=== PATIENT | female | born 1955 | race Caucasian/White ===

== ENCOUNTER → 2017-11-24 | Outpatient (CLI) | payer MEDICAID ==
[~2017-11-24] MED LIST: ABILIF5PT PO; ACE325 PO; ACE500 PO; ACY15T TOP; ADV250/50 INH; ADVAIR; ADVAIR IH; ALAVERT IH; ALB0.5 INH; ALB17R INH; ALB6.7R INH; ALBUTERAL INHALER IH; ALE70 PO; AMOX-559 PO; ANU28T RC; ARIP1SOL2 PO; ARIP2TAB9 PO; ATOR20TA65 PO; AUG875 PO; AVANZA; AVINZA; AVINZA PO; AZIT-17 PO; BACI28.415 TP; BACL-51 PO; BACOUD TOP; BEN100 PO; BENZ1 PO; BETA1TAB44 PO; BIS5 PO; BUPR-156 PO; CALC-1033 PO; CALC-41 PO; CALC-852 PO; CALC625T57 PO; CALCIUM; CARB15DR72 OP; CEFT1VIA52 IV; CEFT2FRO4 IV; CEP500 PO; CEPH-13 PO; CEPH-312 PO; CEPH500C24 PO; CET10 PO; CHLO5CAP PO; CHOL200022 PO; CHOL200038 PO; CHOL400T31 PO; COL30T TP; CYC10 PO; CYCL-332 PO; CYCL10TA PO; DES5 PO; DEXT10TA9 PO; DICL1ADH TP; DOC100 PO; DOCU-416 PO; DOCU100T19 PO; DOCU50CA PO; DOXY-179 PO; DOXY-260 PO; ERGO500029 PO; ERT1P IV; ESTR0.5T16 PO; ESTR0.5T18 PO; ESTR0.9T14 PO; ESTRADIOL; ESTRADIOL PO; FIB PO; FIBERCON; FLUT10SP NS; FLUT16SP19 NS; FLUT16SP20 NS; FOL1 PO; FURO-45 PO; HYD2 PO; HYDR-385 PO; HYDR25SU51 RC; HYDR57CR TP; LEV175 PO; LEV500 PO; LEVO-3 PO; LEVO150T78 PO; LEVO175T37 PO; LID5T TOP; LIDO700A25 TP; LOR10 PO; LOR5 PO; LOR5/325 PO; LORA-798 PO; LORA10TA2 PO; MAGN250T34 PO; MAGN27TA6 PO; MAGN500C10 PO; MELO-150 PO; MELO-207 PO; MET10 PO; MICO113C TP; MIR; MIR PO; MIRA50TA PO; MOD100 PO; MODA200T39 PO; MODA200T55 PO; MOMR; MOMR ENA; MORIR15 PO; MORP-183 PO; MORP30CA15 PO; MORPHINE PO; MULT1CAP41 PO; MULTI VITAMIN; NAP375 PO; OMEP-218 PO; OXY5 PO; OXYB15TA17 PO; OXYB5TAB86 PO; OXYGEN INH; PAR20 PO; PARO20TA4 PO; PARO30TA71 PO; PARO40TA86 PO; PAROXETINE PO; POLPT TOP; POLY17PO19 PO; POTA2TAB29; POTA99TA10; PRAV40TA77 PO; PRE20 PO; PRED20TA6 PO; QUET25TA30 PO; ROP1 PO; ROPI0.2527 PO; ROPI0.5T24 PO; ROPI1TAB35 PO; ROPI1TAB36 PO; ROPI2TAB28 PO; ROPI4TAB PO; ROPI4TAB2 PO; SEN PO; SIMV-49 PO; SOL5 PO; SOLI5TAB PO; STOOL SOFTNER; STOOL SOFTNER PO; TOP100 PO; TOPI200T61 PO; TRA50 PO; TRAM-420 PO; TRAZ-133 PO; TRAZ-156 PO; TRAZ150T61 PO; TRAZ50 PO; TRI05T TP; TRIC15T TOP; VANC1VIA12 IV; VANC1VIA14 IVPB; VIT-7 PO; VITAMIN D; [UNRECOGNIZED DRUG - CODE] ASDIRECTED; [UNRECOGNIZED DRUG - CODE] MC; [UNRECOGNIZED DRUG - CODE] PO; [UNRECOGNIZED DRUG - CODE] PO; [UNRECOGNIZED DRUG - CODE] PO; [UNRECOGNIZED DRUG - CODE] PO; [UNRECOGNIZED DRUG - CODE] PO; [UNRECOGNIZED DRUG - CODE] PO; [UNRECOGNIZED DRUG - CODE] PO; [UNRECOGNIZED DRUG - CODE] PO; [UNRECOGNIZED DRUG - OTHER] ASDIRECTED; [UNRECOGNIZED DRUG - OTHER] PO; multivit
--- NOTE | 2017-11-24 15:20 | RADIOLOGY IMAGING REPORT ---
FACILITY: [facility] PATIENT NAME: Bhavya Dorantes : 1955 MR: [id number] V: [id number] EXAM DATE: ORDERING PHYSICIAN: SHIMA VILLARREAL TECHNOLOGIST: Location: [facility] Patient: Bhavya Dorantes : 1955 Visit/Account:[id number] Date of Sevice: 11/24/2017 Exam type: VENOUS DOPP UPPER LEFT EXTREMI History: Swelling left medial elbow pain when blood pressure taken Comparison: None. Findings: The left upper extremity veins were imaged including the left internal jugular vein the left innomina te vein left subclavian vein left axillary vein left brachial vein left basilic vein left radial vein and ulnar veins and cephalic veins revealing no evidence intraluminal thrombi. The veins demonstrat ed phasic flow. The veins from the left subclavian distally were compressed. IMPRESSION: 1. No sonographic evidence DVT involving the left upper extremity veins Report Dictated By: Edna Espinoza MD at 11/24/2017 3:13 PM Report E-Signed By: Edna Espinoza MD at 11/24/2017 3:15 PM WSN:[email or web address]
== END ==
LOC: US 14:13
PROVIDERS: ATTEND Family Medicine
DX: M79.602 Pain in left arm (principal)

== ENCOUNTER 2018-01-10 08:14 | Emergency (ER) | payer MEDICAID ==
[~2018-01-10] VITALS: Ht 160 cm; Wt 125.6 kg
--- NOTE | 2018-01-10 08:24 | ER Report ---
History and Physical Time Seen By MD: 08:24 Hx. of Stated Complaint: PT REPORTS EAR AND SINUS PAIN FOR 1 WEEK HPI/ROS CHIEF COMPLAINT: sinus problems and ear pain HISTORY OF PRESENT ILLNESS: This is a 62 year old female. She is concerned about her sinuses. She has had pain for about a week. Worse on the right side with pain in the maxillary area and frontal. Right ear hurts and she says she has a lump behind the ear. She has COPD and asthma and has had increased wheezing and shortness of breath. She takes a chronic nasal steroid, but no oral steroids. She has had increased cough as well. No fevers/chills. Having post nasal drainage. No chest pain. No nausea or vomiting. No musculoskeletal pain. REVIEW OF SYSTEMS: As above. Allergies: Coded Allergies: oxycodone (Verified Allergy, Severe, RASH, 01/10/18) Sulfa (Sulfonamide Antibiotics) (Verified Allergy, Intermediate, ITCH, ) ciprofloxacin (Verified Allergy, Mild, HIVES, 01/10/18) Uncoded Allergies: SOME TAPES (Allergy, Mild, 07/21/11) PLASTIC ON HOSPITAL BEDS (Allergy, Unknown, 07/21/11) Home Meds Active Scripts Methylprednisolone (METHYLPREDNISOLONE) 4 Mg Tab.ds.pk, 4 MG PO DIRECTED, #1 PACK 0 Refills Prov:SAUL NAJERA MD 01/10/18 Amoxicillin/Pot Clav 875-125 Mg Tab (AUGMENTIN 875-125 TABLET) 1 Each Tablet, 1 TAB PO Q12H, #20 TAB 0 Refills Prov:SAUL NAJERA MD 01/10/18 Cephalexin Monohydrate (CEPHALEXIN) 500 Mg Cap, 2 TAB PO BID, #120 CAP 0 Refills Prov:JALEN LIZARRAGA MD 04/14/16 Tramadol Hcl (TRAMADOL HCL) 50 Mg Tablet, 1-2 TAB PO Q4-6H Y for PAIN, #30 TAB 0 Refills Prov:JALEN LIZARRAGA MD 01/02/16 Docusate Sodium (COLACE) 100 Mg Capsule, 1 CAP PO BID, #30 CAPSULE 0 Refills Prov:JALEN LIZARRAGA MD 01/02/16 Hydrocodone Bit/Acetaminophen (HYDROCODON-ACETAMINOPHEN 5-325) 1 Each Tablet, 1- 2 TAB PO Q4H Y for PAIN, #30 TAB 0 Refills Prov:JALEN LIZARRAGA MD 12/25/15 Bacitracin (BACITRACIN) 30 Gm Oint...g., 1 HIMA TP QDAY Y for Dressing Changes, # 1 TUBE 0 Refills Prov:JALEN LIZARRAGA MD 07/28/15 Aripiprazole (ABILIFY) 5 Mg Tablet, 0.5 TAB PO QDAY, #15 TAB TAKE 1 TABLET BY MOUTH EVERY DAY Prov:PAULO DURANT APRN-C 06/27/15 Atorvastatin Calcium (ATORVASTATIN CALCIUM) 20 Mg Tablet, 1 TAB PO QDAY, #90 TAB 1 Refill Prov:MAHSA MCCARTNEY MD 05/06/15 Baclofen (BACLOFEN) 20 Mg Tablet, 1 TAB PO TID, #270 TAB 3 Refills TAKE 1 TABLET BY MOUTH THREE TIMES A DAY Prov:MAHSA MCCARTNEY MD 05/02/15 Morphine Sulfate (MS CONTIN) 30 Mg Tablet.er, 1 TAB PO BID, #60 TAB 0 Refills Prov:MAHSA MCCARTNEY MD 05/02/15 Paroxetine Hcl (PAROXETINE HCL) 30 Mg Tablet, 1 TAB PO QDAY for for depression, #90 TAB 3 Refills Prov:MAHSA MCCARTNEY MD 05/02/15 Meloxicam (MELOXICAM) 15 Mg Tablet, 1 TAB PO QDAY, #90 TAB 3 Refills Prov:MAHSA MCCARTNEY MD 05/02/15 Trazodone Hcl (TRAZODONE HCL) 50 Mg Tablet, 1 TAB PO QHS, #90 TAB 3 Refills Prov:MAHSA MCCARTNEY MD 05/02/15 Polyhexam Biguan/Gauze Bandage (Curity Amd 2"X2" Non-Woven) 1 Each Sponge, PACK ASDIRECTED DIRECTED Y for Post-op Dressing, #1 3 Refills Prov:JALEN LIZARRAGA MD 03/31/15 0.9 % Sodium Chloride (SALINE WOUND WASH) 210 Ml Solution, 1 BOTTLE ASDIRECTED DIRECTED Y for Post-Op Dressing, #1 3 Refills Prov:JALEN LIZARRAGA MD 03/31/15 Topiramate (TOPIRAMATE) 200 Mg Tablet, 1 TAB PO QDAY, #30 TAB 5 Refills Prov:PAULO DURANT APRN-C 03/13/15 Modafinil (PROVIGIL) 200 Mg Tablet, 1 TAB PO QAM, #30 TAB 5 Refills Prov:MAHSA MCCARTNEY MD 01/30/15 Reported Medications Solifenacin Succinate (VESICARE) Unknown Strength Tablet, PO 08/25/15 Mirabegron (MYRBETRIQ) 50 Mg Tab.er.24h, 50 MG PO QDAY 08/25/15 Levothyroxine Sodium (LEVOTHYROXINE SODIUM) 100 Mcg Tablet, 100 MCG PO QDAY 07/28/15 Ropinirole Hcl (ROPINIROLE HCL) 2 Mg Tablet, 1-2 TAB PO QDAY, #90 TAB 3 Refills 06/10/15 Cholecalciferol (Vitamin D3) (VITAMIN D) 2,000 Unit Tablet, 1 TAB PO QDAY, CAPSULE 06/10/15 Calcium Carbonate/Vitamin D3 (Calcium 600 + D Tablet) 1 Each Tablet, 2 TAB PO QDAY 06/10/15 Collagenase Clostridium Hist. (SANTYL) Unknown Strength Oint...g., TP 11/25/14 Vit A,C & E/Lutein/Minerals (OCUVITE TABLET) 1 Each Tablet, 1 EACH PO DAILY 11/25/14 Triamcinolone Acet 0.5% (TRIAMCINOLONE ACETONIDE 0.5%) 15 Gm Cr, 15 GM TP BID 08/02/14 Past Medical/Surgical History Multiple sclerosis, hyperlipidemia, hypertension, asthma, COPD, osteoarthritis, hypothyroidism, depression. Surgeries include hernia repair, hysterectomy, multiple orthopedic surgeries including back and neck, genitourinary surgery Reviewed Nurses Notes: Yes Hx Smoking: No (JANUARY 26, 2005 SHE QUIT (SMOKED 2 PPD X 30 + YRS)) Smoking Status: Former Smoker Hx Substance Use Disorder: No Hx Alcohol Use: No Constitutional Vital Sign - Last 24 Hours 01/10/18 01/10/18 01/10/18 01/10/18 08:17 08:20 08:24 08:30 Temp 98.2 Pulse 78 72 Resp 18 B/P (MAP) 115/74 (88) 115/74 125/118 (120) Pulse Ox 90 91 O2 Delivery Nasal Cannula 01/10/18 01/10/18 01/10/18 01/10/18 08:34 08:40 08:40 08:46 Pulse 73 70 68 Resp 18 18 Pulse Ox 91 92 O2 Delivery Nasal Cannula O2 Flow Rate 2.0 01/10/18 01/10/18 01/10/18 01/10/18 08:54 09:29 09:59 10:29 Pulse 77 74 71 Pulse Ox 87 89 89 88 01/10/18 01/10/18 10:57 11:01 Pulse 69 B/P (MAP) 99/81 (87) 99/81 (87) Pulse Ox 90 O2 Delivery Nasal Cannula O2 Flow Rate 2 Physical Exam General Appearance: The patient is alert. No acute distress. Eyes: Pupils are equal, round. No pallor, injection or icterus. ENT: Mucous membranes are moist. Normal oral mucosa. Posterior oropharynx shows thick post-nasal drainage and erythema. Nasal mucosa is very erythematous in the right nasal passage, mild erythema in left, significant mucous both sides. Ear canal red and swollen on the right. Bulging and effusion on right but TM normal color. TM and canal on left is normal with effusion. Neck: Supple and non tender. Tender posterior cervical lymphadenopathy on right side. Respiratory: Lungs with significant wheezing, but no rales or rhonchi. There are no retractions or accessory muscle use. Cardiovascular: Regular rate and rhythm. No murmurs, gallops or rubs. Normal capillary refill. Neurological: Alert and oriented x3. Skin: Warm and dry. No rashes. DIFFERENTIAL DIAGNOSIS: After history and physical exam, differential diagnosis was considered for a patient with otitis externa of the right ear, concern for sinusitis, and increased wheezing with history of asthma and COPD. Medical Decision Making Data Points Laboratory Hematology Test 01/10/18 08:45 Influenza Virus Type A (PCR) Negative (NEGATIVE) Influenza Virus Type B (PCR) Negative (NEGATIVE) Chemistry Test 01/10/18 08:45 Influenza Virus Type A (PCR) Negative (NEGATIVE) Influenza Virus Type B (PCR) Negative (NEGATIVE) EKG/Imaging Imaging Exam type: CHEST PA AND LAT History: Comparison: October 24, 2016. Findings: Mild chronic peribronchial thickening again noted bilaterally. There is no evidence of acute-appearing pulmonary consolidation pleural effusions or overt pulmonary edema. The cardiac silhouette is normal in size. There are postsurgical changes from fusion of the lower cervical spine. Moderate spondylotic changes the thoracic spine also noted IMPRESSION: 1. Chronic peribronchial thickening noted bilaterally similar to the prior study. No evidence of acute pulmonary consolidation seen Report Dictated By: Edna Espinoza MD at 01/10/2018 9:08 AM ED Course/Re-evaluation ED Course Physical exam shows otitis externa, she has symptoms and history consistent with sinusitis. Chest x-ray was obtained because of the increased wheezing, but no acute abnormalities were noted, so we will go ahead and treat for asthma exacerbation as well. See instructions below Decision to Disposition Date: Jan 10, 2018 Decision to Disposition Time: 10:51 Depart Departure Latest Vital Signs Vital Signs Date Time Temp Pulse Resp B/P (MAP) Pulse Ox O2 Delivery O2 Flow Rate FiO2 01/10/18 11:01 69 99/81 (87) 90 Nasal Cannula 2 01/10/18 08:46 18 01/10/18 08:20 98.2 Impression: Primary Impression: Otitis externa Additional Impressions: Sinusitis Asthma exacerbation Condition: Improved Disposition: HOME OR SELF-CARE Referrals: SHIMA VILLARREAL DO (PCP) New Scripts Methylprednisolone (METHYLPREDNISOLONE) 4 Mg Tab.ds.pk 4 MG PO DIRECTED, #1 PACK 0 Refills Prov: SAUL NAJERA MD 01/10/18 Amoxicillin/Pot Clav 875-125 Mg Tab (AUGMENTIN 875-125 TABLET) 1 Each Tablet 1 TAB PO Q12H, #20 TAB 0 Refills Prov: SAUL NAJERA MD 01/10/18 Patient Instructions: Asthma (ED), Otitis Externa (ED), Sinusitis (ED) Additional Instructions: Take Augmentin 875/125 twice a day for 10 days. Take a Medrol Dosepak over the next 6 days. Use your albuterol inhaler, 2 puffs every 4 hours as needed for wheezing or shortness of breath Problem Qualifiers Primary Impression: Otitis externa Otitis externa type: swimmer's ear Chronicity: acute Laterality: left Qualified Codes: H60.332 - Swimmer's ear, left ear Additional Impressions: Sinusitis Sinusitis location: pansinusitis Chronicity: acute Recurrence: not specified as recurrent Qualified Codes: J01.40 - Acute pansinusitis, unspecified Asthma exacerbation Asthma severity: moderate Asthma persistence: persistent Qualified Codes: J45.41 - Moderate persistent asthma with (acute) exacerbation SAUL NAJERA MD Jan 10, 2018 08:24
[2018-01-10] MEDS ORDERED: ALBUTEROL/IPRATROPIUM 3 ML NEB NEB ONE (08:35)
--- NOTE | 2018-01-10 09:15 | RADIOLOGY IMAGING REPORT ---
FACILITY: [facility] PATIENT NAME: Bahvya Dorantes : 1955 MR: [id number] V: [id number] EXAM DATE: ORDERING PHYSICIAN: SAUL NAJERA TECHNOLOGIST: Location: [facility] [place] Patient: Bhavya Dorantes : 1955 Visit/Account:[id number] Date of Sevice: 01/10/2018 Exam type: CHEST PA AND LAT History: Comparison: October 24, 2016. Findings: Mild chronic peribronchial thickening again noted bilaterally. There is no evidence of acute-appeari ng pulmonary consolidation pleural effusions or overt pulmonary edema. The cardiac silhouette is nor mal in size. There are postsurgical changes from fusion of the lower cervical spine. Moderate spond ylotic changes the thoracic spine also noted IMPRESSION: 1. Chronic peribronchial thickening noted bilaterally similar to the prior study. No evidence of ac roseann pulmonary consolidation seen Report Dictated By: Edna Espinoza MD at 01/10/2018 9:08 AM Report E-Signed By: Edna Espinoza MD at 01/10/2018 9:10 AM WSN:[email or web address]
[2018-01-10] MEDS ORDERED: METH4TAB66 PO (10:54)
[2018-01-10] MEDS ORDERED: AMOX-559 PO (10:54)
[2018-01-10 11:01] VITALS: BP 99/81
== END 2018-01-10 11:06 | disposition home or self-care (01) ==
LOC: ER 08:15
DX: H60.91 Unspecified otitis externa, right ear (principal); J01.40 Acute pansinusitis, unspecified; J45.41 Moderate persistent asthma with (acute) exacerbation; Z87.891 Personal history of nicotine dependence; J44.9 Chronic obstructive pulmonary disease, unspecified
CPT/HCPCS: 71046; 87502; 94640; 99283; J7620

== ENCOUNTER → 2018-06-29 | Emergency (ER) | payer MEDICAID ==
[~2018-06-29] MED LIST changes: +CEPH500T7 PO; +METH4TAB66 PO; -TRAZ-156 PO; +TRAZ50TA34 PO
--- NOTE | 2018-06-29 10:16 | ER Report ---
History and Physical Time Seen By MD: 10:16 HPI/ROS CHIEF COMPLAINT: Right dorsal foot redness HISTORY OF PRESENT ILLNESS: Patient is a 62-year-old female here with complaints of right dorsal foot redness which started yesterday after standing for approximately 10 minutes. Patient reports having prior surgery on the foot and recurrent bone infections in the past. Patient is concerned that she had a fractured the foot or has an infection starting. Patient is afebrile at time of evaluation, hemodynamically stable. Patient denies other injuries at this time. REVIEW OF SYSTEMS: Constitutional: No fever, no chills. Eyes: No discharge. ENT: No sore throat. Cardiovascular: No chest pain, no palpitations. Respiratory: No cough, no shortness of breath. Gastrointestinal: No abdominal pain, no vomiting. Genitourinary: No hematuria. Musculoskeletal: No back pain. Skin: + right dorsal foot erythema Neurological: No headache. Allergies: Coded Allergies: oxycodone (Verified Allergy, Severe, RASH, 06/29/18) Sulfa (Sulfonamide Antibiotics) (Verified Allergy, Intermediate, ITCH, ) ciprofloxacin (Verified Allergy, Mild, HIVES, 06/29/18) Uncoded Allergies: SOME TAPES (Allergy, Mild, 07/21/11) PLASTIC ON HOSPITAL BEDS (Allergy, Unknown, 07/21/11) Home Meds Active Scripts Methylprednisolone (METHYLPREDNISOLONE) 4 Mg Tab.ds.pk, 4 MG PO DIRECTED, #1 PACK 0 Refills Prov:SAUL NAJERA MD 01/10/18 Amoxicillin/Pot Clav 875-125 Mg Tab (AUGMENTIN 875-125 TABLET) 1 Each Tablet, 1 TAB PO Q12H, #20 TAB 0 Refills Prov:SAUL NAJERA MD 01/10/18 Cephalexin Monohydrate (CEPHALEXIN) 500 Mg Cap, 2 TAB PO BID, #120 CAP 0 Refills Prov:JALEN LIZARRAGA MD 04/14/16 Tramadol Hcl (TRAMADOL HCL) 50 Mg Tablet, 1-2 TAB PO Q4-6H Y for PAIN, #30 TAB 0 Refills Prov:JALEN LIZARRAGA MD 01/02/16 Docusate Sodium (COLACE) 100 Mg Capsule, 1 CAP PO BID, #30 CAPSULE 0 Refills Prov:JALEN LIZARRAGA MD 01/02/16 Hydrocodone Bit/Acetaminophen (HYDROCODON-ACETAMINOPHEN 5-325) 1 Each Tablet, 1- 2 TAB PO Q4H Y for PAIN, #30 TAB 0 Refills Prov:JALEN LIZARRAGA MD 12/25/15 Bacitracin (BACITRACIN) 30 Gm Oint...g., 1 HIMA TP QDAY Y for Dressing Changes, # 1 TUBE 0 Refills Prov:JALEN LIZARRAGA MD 07/28/15 Aripiprazole (ABILIFY) 5 Mg Tablet, 0.5 TAB PO QDAY, #15 TAB TAKE 1 TABLET BY MOUTH EVERY DAY Prov:PAULO DURANT APRN MELTER CASTER-C 06/27/15 Atorvastatin Calcium (ATORVASTATIN CALCIUM) 20 Mg Tablet, 1 TAB PO QDAY, #90 TAB 1 Refill Prov:MAHSA MCCARTNEY MD 05/06/15 Baclofen (BACLOFEN) 20 Mg Tablet, 1 TAB PO TID, #270 TAB 3 Refills TAKE 1 TABLET BY MOUTH THREE TIMES A DAY Prov:MAHSA MCCARTNEY MD 05/02/15 Morphine Sulfate (MS CONTIN) 30 Mg Tablet.er, 1 TAB PO BID, #60 TAB 0 Refills Prov:MAHSA MCCARTNEY MD 05/02/15 Paroxetine Hcl (PAROXETINE HCL) 30 Mg Tablet, 1 TAB PO QDAY for for depression, #90 TAB 3 Refills Prov:MAHSA MCCARTNEY MD 05/02/15 Meloxicam (MELOXICAM) 15 Mg Tablet, 1 TAB PO QDAY, #90 TAB 3 Refills Prov:MAHSA MCCARTNEY MD 05/02/15 Trazodone Hcl (TRAZODONE HCL) 50 Mg Tablet, 1 TAB PO QHS, #90 TAB 3 Refills Prov:MAHSA MCCARTNEY MD 05/02/15 Polyhexam Biguan/Gauze Bandage (Curity Amd 2"X2" Non-Woven) 1 Each Sponge, PACK ASDIRECTED DIRECTED Y for Post-op Dressing, #1 3 Refills Prov:JALEN LIZARRAGA MD 03/31/15 0.9 % Sodium Chloride (SALINE WOUND WASH) 210 Ml Solution, 1 BOTTLE ASDIRECTED DIRECTED Y for Post-Op Dressing, #1 3 Refills Prov:JALEN LIZARRAGA MD 03/31/15 Topiramate (TOPIRAMATE) 200 Mg Tablet, 1 TAB PO QDAY, #30 TAB 5 Refills Prov:CARLEENPAULOPRAVIN LAI MELTER CASTER-C 03/13/15 Modafinil (PROVIGIL) 200 Mg Tablet, 1 TAB PO QAM, #30 TAB 5 Refills Prov:MAHSA MCCARTNEY MD 01/30/15 Reported Medications Solifenacin Succinate (VESICARE) Unknown Strength Tablet, PO 08/25/15 Mirabegron (MYRBETRIQ) 50 Mg Tab.er.24h, 50 MG PO QDAY 08/25/15 Levothyroxine Sodium (LEVOTHYROXINE SODIUM) 100 Mcg Tablet, 100 MCG PO QDAY 07/28/15 Ropinirole Hcl (ROPINIROLE HCL) 2 Mg Tablet, 1-2 TAB PO QDAY, #90 TAB 3 Refills 06/10/15 Cholecalciferol (Vitamin D3) (VITAMIN D) 2,000 Unit Tablet, 1 TAB PO QDAY, CAPSULE 06/10/15 Calcium Carbonate/Vitamin D3 (Calcium 600 + D Tablet) 1 Each Tablet, 2 TAB PO QDAY 06/10/15 Collagenase Clostridium Hist. (SANTYL) Unknown Strength Oint...g., TP 11/25/14 Vit A,C & E/Lutein/Minerals (OCUVITE TABLET) 1 Each Tablet, 1 EACH PO DAILY 11/25/14 Triamcinolone Acet 0.5% (TRIAMCINOLONE ACETONIDE 0.5%) 15 Gm Cr, 15 GM TP BID 08/02/14 Hx Smoking: No (JANUARY 26, 2005 SHE QUIT (SMOKED 2 PPD X 30 + YRS)) Smoking Status: Former Smoker Hx Substance Use Disorder: No Hx Alcohol Use: No Constitutional Vital Sign - Last 24 Hours 06/29/18 10:17 Temp 97.6 Pulse 75 Resp 18 B/P (MAP) 113/102 Pulse Ox 82 O2 Delivery Room Air Physical Exam General Appearance: The patient is alert, has no immediate need for airway protection and no signs of toxicity. NAD Eyes: Pupils equal and round no pallor or injection. ENT, Mouth: Mucous membranes are moist. Respiratory: There are no retractions, lungs are clear to auscultation. Cardiovascular: Regular rate and rhythm. Gastrointestinal: Abdomen is soft and non tender, no masses, bowel sounds normal. Neurological: No focal neurological deficits Skin: + Mild erythema of the right dorsal foot Musculoskeletal: Neck is supple non tender. Extremities are nontender, nonswollen and have full range of motion. DIFFERENTIAL DIAGNOSIS: After history and physical exam differential diagnosis was considered for cellulitis, fracture, contusion, abrasion Medical Decision Making EKG/Imaging Imaging Exam type: FOOT 3 VIEW RIGHT History: dorsal foot pain Comparison: December 10, 2015 and July 25, 2011. Findings: Again is diffuse osteopenia. 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 ED Course/Re-evaluation ED Course Patient is a 62-year-old female here with complaints of right dorsal foot erythema for the past day after standing for approximately 10 minutes yesterday. Patient has had multiple issues with her foot in the past including bone infections, amputations. She is concerned that she was developing an infection which prompted her evaluation today. No acute fractures were identified on x-ray imaging. Patient was placed on Keflex 4 times a day for 7 days for suspected cellulitis treatment. Patient was stable at time of discharge. Decision to Disposition Date: Jun 29, 2018 Decision to Disposition Time: 11:34 Depart Departure Latest Vital Signs Vital Signs Date Time Temp Pulse Resp B/P (MAP) Pulse Ox O2 Delivery O2 Flow Rate FiO2 06/29/18 10:17 97.6 75 18 113/102 82 Room Air Impression: Primary Impression: Cellulitis Condition: Improved Disposition: HOME OR SELF-CARE Referrals: SHIMA VILLARREAL DO (PCP) New Scripts Cephalexin 500 Mg Tab (KEFLEX 500 MG TAB) 500 Mg Tablet 500 MG PO Q6H for 7 Days, #28 TAB Prov: CHUN FIGUEROA DO 06/29/18 Patient Instructions: Cellulitis (ED) Additional Instructions: Please take one tablet of Keflex 4 times a day for 7 days. No acute fractures were identified on x-ray imaging. Please return promptly if you develop worsening pain, swelling, redness. Please follow-up with your family doctor in one week. CHUN FIGUEROA DO Jun 29, 2018 10:16
--- NOTE | 2018-06-29 11:28 | RADIOLOGY IMAGING REPORT ---
FACILITY[place] [facility] [place] PATIENT NAME: Bhavya Dorantes : 1955 MR: [id number] V: [id number] EXAM DATE: ORDERING PHYSICIAN: CHUN FIGUEROA [place]CHN[place]IST: [place] [facility] [place] Bhavya Dor[place] : 1955 Visit/Account:[id number] Date of Sevice: 06/29/2018 Exam type: FOOT 3 VIEW RIGHT History: dorsal foot pain Comparison: December 10, 2015 and July 25, 2011. Findings: Again is diffuse osteopenia. Old posttraumatic deformity of the right fifth metatarsal has been ampu tation of the distal and most of the proximal phalanges of the right great toe severe degenerative ch anges of the right ankle joint again noted IMPRESSION: 1. 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 Report Dictated By: Edna Espinoza MD at 06/29/2018 11:21 AM Report E-Signed By: Edna Espinoza MD at 06/29/2018 11:23 AM WSN:[email or web address]
[2018-06-29 11:46] VITALS: BP 133/62
== END ==
LOC: ER 10:19
DX: L03.115 Cellulitis of right lower limb (principal); Z88.2 Allergy status to sulfonamides; Z88.5 Allergy status to narcotic agent; Z87.891 Personal history of nicotine dependence
CPT/HCPCS: 99283

== ENCOUNTER 2018-08-19 07:39 | Emergency (ER) | payer MEDICAID ==
[~2018-08-19 07:39] MED LIST changes: +CHOL200018 PO; -CHOL200022 PO
[2018-08-19] MEDS ORDERED: ceFAZolin 1 GM VIAL IVP ONE (08:05)
[2018-08-19] MEDS ORDERED: TRAMADOL PO ONE (08:05)
[2018-08-19] MEDS ORDERED: ACETAMIN PO ONE (08:05)
[2018-08-19 08:21] LABS: PLATELET COUNT, AUTOMATED 188 K/uL (150-450)
[2018-08-19 09:30] VITALS: BP 121/71
[2018-08-19] MEDS ORDERED: CEPH-13 PO (09:31)
[2018-08-19] MEDS ORDERED: MUPI15CR2 TP (09:31)
--- NOTE | 2018-08-19 09:33 | ER Report ---
History and Physical Time Seen By MD: 08:40 Hx. of Stated Complaint: PATIENT IS REPORTING THAT SHE HAS AN AREA OF CONCERN ON THE RIGHT FOOT WHERE HER BIG TOE WAS AMPUTATED. 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 Healing has been complicated by plantar callous at whic h pt thinks it cracked open 2 wks ago. She has been applying topical abx, but over past 2 d has had increasing toe/foot pain, redness, that is now spreading to her r leg. She has noticed increased swelling r leg. Pain 4/10 and constant. Worse with movement. + nausea, no v/f/cp/sob/ap/uti symptoms. REVIEW OF SYSTEMS: Constitutional: No fever, no chills. Eyes: No discharge. ENT: No sore throat. Cardiovascular: No chest pain, no palpitations. Respiratory: No cough, no shortness of breath. Gastrointestinal: No abdominal pain, no vomiting. Genitourinary: No hematuria. Musculoskeletal: chronic back pain. no change Skin: above Neurological: No headache. Remainder of the 14 system rev: Yes Allergies: Coded Allergies: oxycodone (Verified Allergy, Severe, RASH, 06/29/18) Sulfa (Sulfonamide Antibiotics) (Verified Allergy, Intermediate, ITCH, 06/29/18) ciprofloxacin (Verified Allergy, Mild, HIVES, 06/29/18) Uncoded Allergies: SOME TAPES (Allergy, Mild, 07/21/11) PLASTIC ON HOSPITAL BEDS (Allergy, Unknown, 07/21/11) Home Meds Active Scripts Mupirocin Alexander 2% Cream (MUPIROCIN 2% CREAM) 15 Gm Cream..g., 0 TP TID for 10 Days, #1 TUBE Prov:TIMBO THOMPSON MD 08/19/18 Cephalexin (KEFLEX) 500 Mg Capsule, 1000 MG PO Q12H for 10 Days, #40 TAB Prov:TMIBO THOMPSON MD 08/19/18 Cephalexin 500 Mg Tab (KEFLEX 500 MG TAB) 500 Mg Tablet, 500 MG PO Q6H for 7 Days, #28 TAB Prov:CHUN FIGUEROA DO 06/29/18 Methylprednisolone (METHYLPREDNISOLONE) 4 Mg Tab.ds.pk, 4 MG PO DIRECTED, #1 PACK 0 Refills Prov:SAUL NAJERA MD 01/10/18 Amoxicillin/Pot Clav 875-125 Mg Tab (AUGMENTIN 875-125 TABLET) 1 Each Tablet, 1 TAB PO Q12H, #20 TAB 0 Refills Prov:SAUL NAJERA MD 01/10/18 Cephalexin Monohydrate (CEPHALEXIN) 500 Mg Cap, 2 TAB PO BID, #120 CAP 0 Refills Prov:JALEN LIZARRAGA MD 04/14/16 Tramadol Hcl (TRAMADOL HCL) 50 Mg Tablet, 1-2 TAB PO Q4-6H PRN for PAIN, #30 TAB 0 Refills Prov:JALEN LIZARRAGA MD 01/02/16 Docusate Sodium (COLACE) 100 Mg Capsule, 1 CAP PO BID, #30 CAPSULE 0 Refills Prov:JALEN LIZARRAGA MD 01/02/16 Hydrocodone Bit/Acetaminophen (HYDROCODON-ACETAMINOPHEN 5-325) 1 Each Tablet, 1- 2 TAB PO Q4H PRN for PAIN, #30 TAB 0 Refills Prov:JALEN LIZARRAGA MD 12/25/15 Bacitracin (BACITRACIN) 30 Gm Oint...g., 1 HIMA TP QDAY PRN for Dressing Changes, #1 TUBE 0 Refills Prov:JALEN LIZARRAGA MD 07/28/15 Aripiprazole (ABILIFY) 5 Mg Tablet, 0.5 TAB PO QDAY, #15 TAB TAKE 1 TABLET BY MOUTH EVERY DAY Prov:PAULO DURANT APRN CORRECTIONAL SUPERVISOR-C 06/27/15 Atorvastatin Calcium (ATORVASTATIN CALCIUM) 20 Mg Tablet, 1 TAB PO QDAY, #90 TAB 1 Refill Prov:MAHSA MCCARTNEY MD 05/06/15 Baclofen (BACLOFEN) 20 Mg Tablet, 1 TAB PO TID, #270 TAB 3 Refills TAKE 1 TABLET BY MOUTH THREE TIMES A DAY Prov:MAHSA MCCARTNEY MD 05/02/15 Morphine Sulfate (MS CONTIN) 30 Mg Tablet.er, 1 TAB PO BID, #60 TAB 0 Refills Prov:MAHSA MCCARTNEY MD 05/02/15 Paroxetine Hcl (PAROXETINE HCL) 30 Mg Tablet, 1 TAB PO QDAY for for depression, #90 TAB 3 Refills Prov:MAHSA MCCARTNEY MD 05/02/15 Meloxicam (MELOXICAM) 15 Mg Tablet, 1 TAB PO QDAY, #90 TAB 3 Refills Prov:MAHSA MCCARTNEY MD 05/02/15 Trazodone Hcl (TRAZODONE HCL) 50 Mg Tablet, 1 TAB PO QHS, #90 TAB 3 Refills Prov:MAHSA MCCARTNEY MD 05/02/15 Polyhexam Biguan/Gauze Bandage (Curity Amd 2"X2" Non-Woven) 1 Each Sponge, PACK ASDIRECTED DIRECTED PRN for Post-op Dressing, #1 3 Refills Prov:JALEN LIZARRAGA MD 03/31/15 0.9 % Sodium Chloride (SALINE WOUND WASH) 210 Ml Solution, 1 BOTTLE ASDIRECTED DIRECTED PRN for Post-Op Dressing, #1 3 Refills Prov:JALEN LIZARRAGA MD 03/31/15 Topiramate (TOPIRAMATE) 200 Mg Tablet, 1 TAB PO QDAY, #30 TAB 5 Refills Prov:PAULO DURANT APRN CORRECTIONAL SUPERVISOR-C 03/13/15 Modafinil (PROVIGIL) 200 Mg Tablet, 1 TAB PO QAM, #30 TAB 5 Refills Prov:MAHSA MCCARTNEY MD 01/30/15 Reported Medications Solifenacin Succinate (VESICARE) Unknown Strength Tablet, PO 08/25/15 Mirabegron (MYRBETRIQ) 50 Mg Tab.er.24h, 50 MG PO QDAY 08/25/15 Levothyroxine Sodium (LEVOTHYROXINE SODIUM) 100 Mcg Tablet, 100 MCG PO QDAY 07/28/15 Ropinirole Hcl (ROPINIROLE HCL) 2 Mg Tablet, 1-2 TAB PO QDAY, #90 TAB 3 Refills 06/10/15 Cholecalciferol (Vitamin D3) (VITAMIN D) 2,000 Unit Tablet, 1 TAB PO QDAY, CAPSULE 06/10/15 Calcium Carbonate/Vitamin D3 (Calcium 600 + D Tablet) 1 Each Tablet, 2 TAB PO QDAY 06/10/15 Collagenase Clostridium Hist. (SANTYL) Unknown Strength Oint...g., TP 11/25/14 Vit A,C & E/Lutein/Minerals (OCUVITE TABLET) 1 Each Tablet, 1 EACH PO DAILY 11/25/14 Triamcinolone Acet 0.5% (TRIAMCINOLONE ACETONIDE 0.5%) 15 Gm Cr, 15 GM TP BID 08/02/14 Hx Smoking: No (JANUARY 26, 2005 SHE QUIT (SMOKED 2 PPD X 30 + YRS)) Smoking Status: Former Smoker Hx Substance Use Disorder: No Hx Alcohol Use: No Constitutional Vital Sign - Last 24 Hours 08/19/18 08/19/18 08/19/18 08/19/18 07:49 07:50 08:09 08:39 Temp 97.8 Pulse 71 64 60 Resp 24 B/P (MAP) 113/89 (97) 113/89 Pulse Ox 82 92 93 O2 Delivery Room Air 08/19/18 08/19/18 08/19/18 08/19/18 08:46 09:09 09:19 09:30 Pulse 59 B/P (MAP) 123/68 (86) 115/72 (86) 121/71 (88) Pulse Ox 93 Physical Exam General Appearance: The patient is alert, has no immediate need for airway protection and no signs of toxicity. Eyes: Pupils equal and round no pallor or injection. ENT, Mouth: Mucous membranes are moist. Respiratory: There are no retractions, lungs are clear to auscultation. Cardiovascular: Regular rate and rhythm. Neurological: alert/oriented, nad Skin: erythema, ttp and fluctuance R great toe, mild patchy erythema extending to mid calf r leg. Dp/PT pulses present by doppler US. Musculoskeletal: Neck is supple non tender. Extremities are nontender, nonswollen and have full range of motion. DIFFERENTIAL DIAGNOSIS: After history and physical exam differential diagnosis was considered for abscess, cellulitis, osteomyelitis, foreign body, fracture, or other complication Medical Decision Making Data Points Result Diagram: 08/19/18 0812 08/19/18 0812 Laboratory Hematology Test 08/19/18 08:12 Red Blood Count 5.07 M/uL (4.17-5.56) Mean Corpuscular Volume 100.3 fL (80.0-96.0) Mean Corpuscular Hemoglobin 33.5 pg (26.0-33.0) Mean Corpuscular Hemoglobin Concent 33.4 g/dL (32.0-36.0) Red Cell Distribution Width 13.3 % (11.5-14.5) Mean Platelet Volume 9.0 fL (7.2-11.1) Neutrophils (%) (Auto) 52.7 % (39.4-72.5) Lymphocytes (%) (Auto) 36.1 % (17.6-49.6) Monocytes (%) (Auto) 7.8 % (4.1-12.4) Eosinophils (%) (Auto) 2.9 % (0.4-6.7) Basophils (%) (Auto) 0.5 % (0.3-1.4) Nucleated RBC Relative Count (auto) 0.0 /100WBC Neutrophils # (Auto) 3.2 K/uL (2.0-7.4) Lymphocytes # (Auto) 2.2 K/uL (1.3-3.6) Monocytes # (Auto) 0.5 K/uL (0.3-1.0) Eosinophils # (Auto) 0.2 K/uL (0.0-0.5) Basophils # (Auto) 0.0 K/uL (0.0-0.1) Nucleated RBC Absolute Count (auto) 0.00 K/uL Sodium Level 141 mmol/L (137-145) Potassium Level 3.9 mmol/L (3.5-5.0) Chloride Level 104 mmol/L (98-107) Carbon Dioxide Level 25 mmol/L (22-31) Blood Urea Nitrogen 15 mg/dl (7-18) Creatinine 0.70 mg/dl (0.52-1.04) Glomerular Filtration Rate Calc > 60.0 Random Glucose 97 mg/dl (75-110) Calcium Level 9.9 mg/dl (8.4-10.2) Chemistry Test 08/19/18 08:12 White Blood Count 6.1 k/uL (4.5-11.0) Red Blood Count 5.07 M/uL (4.17-5.56) Hemoglobin 17.0 g/dL (12.0-16.0) Hematocrit 50.8 % (34.0-47.0) Mean Corpuscular Volume 100.3 fL (80.0-96.0) Mean Corpuscular Hemoglobin 33.5 pg (26.0-33.0) Mean Corpuscular Hemoglobin Concent 33.4 g/dL (32.0-36.0) Red Cell Distribution Width 13.3 % (11.5-14.5) Platelet Count 188 K/uL (150-450) Mean Platelet Volume 9.0 fL (7.2-11.1) Neutrophils (%) (Auto) 52.7 % (39.4-72.5) Lymphocytes (%) (Auto) 36.1 % (17.6-49.6) Monocytes (%) (Auto) 7.8 % (4.1-12.4) Eosinophils (%) (Auto) 2.9 % (0.4-6.7) Basophils (%) (Auto) 0.5 % (0.3-1.4) Nucleated RBC Relative Count (auto) 0.0 /100WBC Neutrophils # (Auto) 3.2 K/uL (2.0-7.4) Lymphocytes # (Auto) 2.2 K/uL (1.3-3.6) Monocytes # (Auto) 0.5 K/uL (0.3-1.0) Eosinophils # (Auto) 0.2 K/uL (0.0-0.5) Basophils # (Auto) 0.0 K/uL (0.0-0.1) Nucleated RBC Absolute Count (auto) 0.00 K/uL Glomerular Filtration Rate Calc > 60.0 Calcium Level 9.9 mg/dl (8.4-10.2) ED Course/Re-evaluation ED Course Pt presents with findings c/w cellulitis possibly; consider abscess, foreign body. I performed bedside US and noticed possibel < 1cm depth hypoechoic pocket, though vastly noted cobblestoning of soft tissue. I anesthetized distal aspect of great toe with 1mL 1% lidocaine and inserted 18 gu needle at area marked at poss pocket on US. I was not able tto aspirate any fluid; unlikely significant fluid collection/abscess. After IV abx, I dc'd pt on keflex which she states has been successful in past. I gave her SRP's for dev of worseing sympotms No e/o osteomyelitis at this time. Pt will f/u with pcm/surgeon and understands SRp's. . Decision to Disposition Date: Aug 19, 2018 Decision to Disposition Time: 09:30 Depart Departure Latest Vital Signs Vital Signs Date Time Temp Pulse Resp B/P (MAP) Pulse Ox O2 Delivery O2 Flow Rate FiO2 08/19/18 09:30 121/71 (88) 08/19/18 09:09 59 93 10/6/18 07:50 97.8 24 Room Air Core Temperature (Celsius): 36.45 Impression: Primary Impression: Cellulitis Condition: Improved Disposition: HOME OR SELF-CARE Referrals: SHIMA VILLARREAL DO (PCP) 2 Days wound check JALEN LIZARRAGA MD 2 Days call Tuesday for follow up for re-evaluation New Scripts Mupirocin Alexander 2% Cream (MUPIROCIN 2% CREAM) 15 Gm Cream..g. 0 TP TID for 10 Days, #1 TUBE Prov: TIMBO THOMPSON MD 08/19/18 Cephalexin (KEFLEX) 500 Mg Capsule 1000 MG PO Q12H for 10 Days, #40 TAB Prov: TIMBO THOMPSON MD 08/19/18 Patient Instructions: Cellulitis (ED) Additional Instructions: As we discussed, please return for further evaluation if symptoms worsen including increasing redness, pain, fevers, nausea, vomiting, or other concerns. Problem Qualifiers Primary Impression: Cellulitis Site of cellulitis: extremity Site of cellulitis of extremity: toe Laterality: right Qualified Codes: L03.031 - Cellulitis of right toe TIMBO THOMPSON MD Aug 19, 2018 09:33
--- NOTE | 2018-08-19 09:48 | RADIOLOGY IMAGING REPORT ---
FACILITY: [facility] PATIENT NAME: Bhavya Dorantes : 1955 MR: [id number] V: [id number] EXAM DATE: ORDERING PHYSICIAN: TIMBO THOMPSON TECHNOLOGIST: Location: [facility] [place] Patient: Bhavya Dorantes : 1955 Visit/Account:[id number] Date of Sevice: 08/19/2018 Study: TOE RIGHT FOOT GREAT TOE Indication: Patient status post amputation. Area of erythematous and tender to touch Comparison study: June 29, 2018 Findings: AP lateral and oblique views of the right first ray demonstrates the patient is status post amputation at the level of the proximal phalanx. There is no evidence of acute bony abnormality. The re is no evidence of lytic or blastic bony lesions. There is no evidence of focal osteopenia to sugge st the presence of osteomyelitis. There is no evidence of gas within the soft tissues. IMPRESSION: Patient status post great toe amputation. No evidence of focal abnormality. Report Dictated By: Rito Joseph at 08/19/2018 9:41 AM Report E-Signed By: Rito Joseph at 08/19/2018 9:45 AM WSN:[id number]
== END 2018-08-19 10:06 | disposition home or self-care (01) ==
LOC: ER 07:52
DX: L03.031 Cellulitis of right toe (principal)
CPT/HCPCS: 73660; 85025; 96374; 99283; J0690; 82310; 82374; 82435; 82565; 82947; 84132; 84295; 84520

== ENCOUNTER → 2018-09-13 | Outpatient (CLI) | payer MEDICAID ==
[~2018-09-13] MED LIST changes: +AMOX875T60 PO; +GADOBENATE 529MG/1ML 15ML VIAL IVP ONE; +IPRA3AMP10 IH; +MUPI15CR2 TP
--- NOTE | 2018-09-13 17:40 | RADIOLOGY IMAGING REPORT ---
FACILITY: [facility] [place] PATIENT NAME: Bhavya Dorantes : 1955 MR: [id number] V: [id number] EXAM DATE: ORDERING PHYSICIAN: JALEN LIZARRAGA TECHNOLOGIST: Location: [facility] [place] Patient: Bhavya Dorantes : 1955 Visit/Account:[id number] Date of Sevice: 09/13/2018 MRI right foot with and without contrast Indication: Pain of the right great toe. Comparison: None available Technique: Multiple multisequence MR images were obtained through the right foot.. A total of 15 mL I V MultiHance contrast was administered. Findings: Evidence of prior postoperative change from resection of the 1st digit at the level of the base of th e 1st proximal phalanx. Vitamin E marker seen along the dorsum of the midfoot at the level of the 1st and 2nd TMT joints and the plantar aspect of the 1st digit at the level of the mid shafts of the 2nd and 3rd metatarsals. There are a few tiny subcutaneous hyperintensities which show slight enhancement along the plantar ma rgin of the forefoot on images 21 through 23 of the short axis series and similarly along the dorsum of the midfoot deep to the markers which may represent tiny subcutaneous varicosities likely chronic in nature. There are no enhancing mass lesions identified. There is no acute or aggressive osseous abnormality of the visualized bones of the right foot There is no rim-enhancing fluid collection There is evidence of moderate subcutaneous edema along the distal margin of the 1st digit adjacent to the postsurgical resection site which could relate to focal cellulitis and/or soft tissue contusion. Correlate with clinical symptoms. IMPRESSION: 1. Focal area of subcutaneous edema and enhancement adjacent to the 1st digit postsurgical resection site may represent cellulitis with no evidence of abscess collection or underlying abnormal marrow si gnal. 2. Nonspecific tiny subcutaneous hyperintensities as above may represent chronic varicosities. Report Dictated By: Christian Mixon MD at 09/13/2018 5:30 PM Report E-Signed By: Christian Mixon MD at 09/13/2018 5:36 PM WSN:[id number]
== END ==
LOC: MRI 01:09
PROVIDERS: ATTEND Surgery
DX: L03.115 Cellulitis of right lower limb (principal)
CPT/HCPCS: 73720; A9577

== ENCOUNTER → 2018-09-15 | Outpatient (CLI) | payer MEDICAID ==
[~2018-09-15] MED LIST changes: -AMOX875T60 PO; -GADOBENATE 529MG/1ML 15ML VIAL IVP ONE; -IPRA3AMP10 IH
--- NOTE | 2018-09-15 11:56 | EKG ---
FACILITY: [facility] [place] PATIENT NAME: JUDD EDMONDS : [id number] MR: [id number] V: [id number] EXAM DATE: ORDERING PHYSICIAN: JALEN LIZARRAGA TECHNOLOGIST: KINA Test Reason : PREOP Blood Pressure : / mmHG Vent. Rate : 072 BPM Atrial Rate : 072 BPM P-R Int : 206 ms QRS Dur : 092 ms QT Int : 396 ms P-R-T Axes : 068 -44 062 degrees QTc Int : 433 ms Normal sinus rhythm with sinus arrhythmia Left axis deviation Abnormal ECG When compared with ECG of 25-DEC-2015 06:21, No significant change was found Referred By: ZIA Confirmed By:
== END ==
LOC: RESP 11:22
PROVIDERS: ATTEND Surgery
DX: Z02.9 Encounter for administrative examinations, unspecified (principal)

== ENCOUNTER → 2018-09-27 | Outpatient (CLI) | payer MEDICAID ==
[~2018-09-27] MED LIST changes: +AMOX875T60 PO; +IPRA3AMP10 IH
--- NOTE | 2018-09-27 09:54 | RADIOLOGY IMAGING REPORT ---
FACILITY: [facility] [place] PATIENT NAME: Bhavya Dorantes : 1955 MR: [id number] V: [id number] EXAM DATE: ORDERING PHYSICIAN: SHIMA VILLARREAL TECHNOLOGIST: Location: [facility] - [place] Patient: Bhavya Dorantes : 1955 Visit/Account:[id number] Date of Sevice: 09/27/2018 EXAMINATION: CT of the Paranasal Sinuses HISTORY: Sinusitis. TECHNIQUE: Contiguous axial images were obtained through the paranasal sinuses without intravenous c ontrast administration. Coronal and sagittal reformatted images were obtained from the axial source d jordan. One of the following dose optimization techniques was utilized in the performance of this exam: Autom ated exposure control; adjustment of the mA and/or kV according to the patient's size; or use of an i terative reconstruction technique. Specific details can be referenced in the facility's radiology C T exam operational policy. COMPARISON: None available. FINDINGS: Maxillary sinuses: Negative. Frontal sinuses: The right frontal sinus is hypoplastic. Otherwise negative. Ethmoid air cells: Negative. Sphenoid sinuses: Negative. Ostiomeatal units: Patent. Nasal septum / nasal cavity: Rightward nasal septal deviation. Orbits: Negative. Visualized intracranial contents/soft tissues: Negative. TMJs: Mild bilateral TMJ arthritis, left worse than right. IMPRESSION: 1. The paranasal sinuses are clear. 2. Rightward nasal septal deviation. 3. Mild bilateral TMJ arthritis, left worse than right. Report Dictated By: Kj James MD at 09/27/2018 9:47 AM Report E-Signed By: Kj James MD at 09/27/2018 9:51 AM WSN:[id number]
== END ==
LOC: CT 07:58
PROVIDERS: ATTEND Family Medicine
DX: M26.603 Bilateral temporomandibular joint disorder, unspecified (principal); J01.10 Acute frontal sinusitis, unspecified
CPT/HCPCS: 70486

== ENCOUNTER 2018-09-29 04:06 | Day surgery (SDC) | payer MEDICAID ==
[~2018-09-29] VITALS: Ht 160 cm; Wt 131.5 kg
[2018-09-29 11:00] VITALS: BP 144/91
[2018-09-29] MEDS ORDERED: fentaNYL CITR 100 MCG/2 ML AMP ONE ×2 (11:44→13:52)
[2018-09-29] MEDS ORDERED: LIDOCAINE 2% IV 100 MG/5ML SYR ONE (11:45)
[2018-09-29] MEDS ORDERED: PROPOFOL EMUL(*) 10MG/ML 20 ML 20 ML ONE (11:45)
[2018-09-29] MEDS ORDERED: NORMOSOL R SOLN(*) 1000 ML BAG 1,000 ML IV PRN (12:10)
[2018-09-29] MEDS ORDERED: AMPICILLIN/SULBACT (*) 3 GM VL 3 GM in NS(*) 0.9% 100 ML BAG 100 ML IVPB ONE (12:10)
[2018-09-29] MEDS ORDERED: LIDOCAINE/SOD BICARB 8.4% SYR ID ONE (12:10)
[2018-09-29] MEDS ORDERED: FAMOTIDINE 20 MG TAB PO ONE (12:10)
[2018-09-29] MEDS ORDERED: MIDAZOLAM 2 MG/2 ML VIAL IVP PRN (12:10)
[2018-09-29] MEDS ORDERED: ROPIVACAINE 0.5% 20 ML VIAL ONE (12:32)
[2018-09-29] MEDS ORDERED: NEOMYCIN/POLYMYX/BACITR 30 GM TP ONE (12:32)
[2018-09-29] MEDS ORDERED: DEXAMETHASONE SOD 4 MG/ML VIAL ONE (12:54)
[2018-09-29] MEDS ORDERED: ONDANSETRON 4 MG/2 ML VIAL ONE (13:03)
[2018-09-29] MEDS ORDERED: GLYCOPYRROLATE 0.2MG/ML 1 ML INJ ONE (13:13)
--- NOTE | 2018-09-29 13:55 | Short(Outpt) Discharge Summary ---
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 (2) Callus of foot Status: Chronic Departure Discharge to: Home, Self Care Discharge Instructions Home Meds Active Scripts Cephalexin (KEFLEX) 500 Mg Capsule, 2 CAP PO Q12H for 10 Days, #120 TAB 0 Refills Prov:JALEN LIZARRAGA MD 09/15/18 Mupirocin Alexander 2% Cream (MUPIROCIN 2% CREAM) 15 Gm Cream..g., 0 TP TID for 10 Days, #1 TUBE Prov:TIMBO THOMPSON MD 08/19/18 Bacitracin (BACITRACIN) 30 Gm Oint...g., 1 HIMA TP QDAY PRN for Dressing Changes, #1 TUBE 0 Refills Prov:AJLEN LIZARRAGA MD 07/28/15 Aripiprazole (ABILIFY) 5 Mg Tablet, 0.5 TAB PO QDAY, #15 TAB TAKE 1 TABLET BY MOUTH EVERY DAY Prov:PAULO DURANT APRN SEED EXPERT-C 06/27/15 Atorvastatin Calcium (ATORVASTATIN CALCIUM) 20 Mg Tablet, 1 TAB PO QDAY, #90 TAB 1 Refill Prov:MAHSA MCCARTNEY MD 05/06/15 Morphine Sulfate (MS CONTIN) 30 Mg Tablet.er, 1 TAB PO BID, #60 TAB 0 Refills Prov:MAHSA MCCARTNEY MD 05/02/15 Paroxetine Hcl (PAROXETINE HCL) 30 Mg Tablet, 1 TAB PO QDAY for for depression, #90 TAB 3 Refills Prov:MAHSA MCCARTNEY MD 05/02/15 Meloxicam (MELOXICAM) 15 Mg Tablet, 1 TAB PO QDAY, #90 TAB 3 Refills Prov:MAHSA MCCARTNEY MD 05/02/15 Trazodone Hcl (TRAZODONE HCL) 50 Mg Tablet, 1 TAB PO QHS, #90 TAB 3 Refills Prov:MAHSA MCCARTNEY MD 05/02/15 0.9 % Sodium Chloride (SALINE WOUND WASH) 210 Ml Solution, 1 BOTTLE ASDIRECTED DIRECTED PRN for Post-Op Dressing, #1 3 Refills Prov:JALEN LIZARRAGA MD 03/31/15 Topiramate (TOPIRAMATE) 200 Mg Tablet, 1 TAB PO QDAY, #30 TAB 5 Refills Prov:PAULO DURANT APRN SEED EXPERT-C 03/13/15 Modafinil (PROVIGIL) 200 Mg Tablet, 1 TAB PO QAM, #30 TAB 5 Refills Prov:MAHSA MCCARTNEY MD 01/30/15 Reported Medications Ipratropium/Albuterol Sulfate (IPRAT-ALBUT 0.5-3(2.5) MG/3 ML) 3 Ml Ampul.neb, 3 ML IH 09/22/18 Amoxicillin (AMOXICILLIN) 875 Mg Tablet, 1 TAB PO Q12H, #10 TAB 09/22/18 Mirabegron (MYRBETRIQ) 50 Mg Tab.er.24h, 50 MG PO QDAY 08/25/15 Levothyroxine Sodium (LEVOTHYROXINE SODIUM) 100 Mcg Tablet, 100 MCG PO QDAY 07/28/15 Ropinirole Hcl (ROPINIROLE HCL) 2 Mg Tablet, 1-2 TAB PO QDAY, #90 TAB 3 Refills 06/10/15 Cholecalciferol (Vitamin D3) (VITAMIN D) 2,000 Unit Tablet, 1 TAB PO QDAY, CAPSULE 06/10/15 Calcium Carbonate/Vitamin D3 (Calcium 600 + D Tablet) 1 Each Tablet, 2 TAB PO QDAY 06/10/15 Collagenase Clostridium Hist. (SANTYL) Unknown Strength Oint...g., TP 11/25/14 Triamcinolone Acet 0.5% (TRIAMCINOLONE ACETONIDE 0.5%) 15 Gm Cr, 15 GM TP BID 08/02/14 Discontinued Reported Medications Solifenacin Succinate (VESICARE) Unknown Strength Tablet, PO 08/25/15 Vit A,C & E/Lutein/Minerals (OCUVITE TABLET) 1 Each Tablet, 1 EACH PO DAILY 11/25/14 Discontinued Scripts Tramadol Hcl (TRAMADOL HCL) 50 Mg Tablet, 1-2 TAB PO Q4-6H PRN for PAIN, #30 TAB 0 Refills Prov:JALEN LIZARRAGA MD 01/02/16 Docusate Sodium (COLACE) 100 Mg Capsule, 1 CAP PO BID, #30 CAPSULE 0 Refills Prov:JALEN LIZARRAGA MD 01/02/16 Hydrocodone Bit/Acetaminophen (HYDROCODON-ACETAMINOPHEN 5-325) 1 Each Tablet, 1- 2 TAB PO Q4H PRN for PAIN, #30 TAB 0 Refills Prov:JALEN LIZARRAGA MD 12/25/15 Polyhexam Biguan/Gauze Bandage (Curity Amd 2"X2" Non-Woven) 1 Each Sponge, PACK ASDIRECTED DIRECTED PRN for Post-op Dressing, #1 3 Refills Prov:JALEN LIZARRAGA MD 03/31/15 Follow up Referrals: General Surgery - 10/16/18 @ Surgery, General with JALEN LIZARRAGA MD You have a follow up appointment scheduled with Dr. Lizarraga on 10/16/18, at 9:30am. Diet: Regular Activity: As Tolerated Special Instructions: You may remove the dressing from your right foot on 10/01/18, then you may shower. After showering, apply antibiotic ointment and an new bandage to the operative site and change this daily until there's no drainage. Avoid putting pressure or walking on your right great toe or the ball of your right foot. Continue taking the antibiotic for 7 more days then stop. JALEN LIZARRAGA MD Sep 29, 2018 13:55
[2018-09-29] MEDS ORDERED: CEPH-13 PO (14:13)
--- NOTE | 2018-09-29 14:20 | Post Operative Progress Note ---
Post Operative Progress Note Date: Sep 29, 2018 Time: 14:15 Surgeon: Javier Dictation number: [id number] Anesthesia: LMA by Dr. Khanna Pre-Op Diagnosis: Right foot callus at great toe amputation site Post-Op Diagnosis: ROSA ISELA Findings: Callus debrided to underlying well-vascularized skin Procedure(s): Right foot callus debridement at great toe amputation site Specimen Removed:(May be N/A): None Complications: None Fluids: See anesthesia record Estimated Blood Loss: Minimal Date OP Note Dictated: Sep 29, 2018 Time OP Note Dictated: 14:16 JALEN LIZARRAGA MD Sep 29, 2018 14:20
[2018-09-29 14:48] VITALS: BP 91/62
[2018-09-29 15:00] VITALS: BP 111/69
[2018-09-29 15:06] VITALS: BP 115/94
[2018-09-29 15:14] VITALS: BP 103/93
--- NOTE | 2018-09-29 17:57 | OPERATIVE REPORT 1 ---
EVENT DATE: September 29, 2018 SURGEON: Surinder Herrera MD ANESTHESIOLOGIST: Rafael Khanna MD ANESTHESIA: LMA. PREOPERATIVE DIAGNOSIS Callus on right foot at previous great toe amputation site. POSTOPERATIVE DIAGNOSIS Callus on right foot at previous great toe amputation site. PROCEDURE PERFORMED Right foot callus debridement. COMPLICATIONS None. CONDITION Stable. BLOOD LOSS Minimal. INDICATIONS This is a 63-year-old female with chronic problems with especially her right root including a nonhealing wound a couple of years ago that ultimately required a right great toe amputation through the proximal phalanx. She healed up well from that, but then I started seeing her a few weeks ago, and she was having callus buildup and reported having a wound in the middle of the callus that was draining. I followed her for a period of time on this, and it continued. Got an MRI which had revealed some soft tissue swelling, but no evidence of osteomyelitis. Because this thing was not improving, and I could not debride it in the clinic due to pain, I consented her for debridement in the operating room which could potentially include debridement of underlying bone if needed. She agreed to proceed with this procedure. DESCRIPTION OF PROCEDURE The patient was brought to the operating room and placed supine on the operating table. LMA anesthesia was administered, and her right foot was prepped and draped in a sterile fashion. A timeout was completed. I injected her right foot all around the stub of the great toe. I then used the 10 blade and tangentially debrided just callus away from the plantar side of her previous amputation incision. I got down to nice healthy, thin skin which in some areas bled very easily and areas that I debrided a little bit deeper down into the dermis. There was a small superficial wound on the very plantar surface, but it did not track deep. It looked clean. After I debrided all this, I elected not to proceed with any deeper debridement because the tissue looked nice and healthy and perfused, and the underlying bone was not putting pressure on any of the tissue. I then cleaned and dried her skin and applied antibiotic ointment, followed by a bandage. She was awakened and LMA removed, and she was transported to the recovery room in stable condition have tolerated the procedure without any apparent problems. JABARI
== END 2018-09-29 14:48 | disposition home or self-care (01) ==
LOC: OR 04:06
PROVIDERS: ATTEND Surgery
DX: L84 Corns and callosities (principal); L03.116 Cellulitis of left lower limb; E66.01 Morbid (severe) obesity due to excess calories; Z68.43 Body mass index [BMI] 50.0-59.9, adult; E03.9 Hypothyroidism, unspecified; G35 Multiple sclerosis; Z99.3 Dependence on wheelchair; E78.5 Hyperlipidemia, unspecified; J44.9 Chronic obstructive pulmonary disease, unspecified; K21.9 Gastro-esophageal reflux disease without esophagitis; G25.81 Restless legs syndrome; F32.9 Major depressive disorder, single episode, unspecified; G47.33 Obstructive sleep apnea (adult) (pediatric); Z89.422 Acquired absence of other left toe(s)
CPT/HCPCS: 11055; J0295; J1100; J2001; J2405; J2704; J2795; J3010; J3490; J7050

== ENCOUNTER → 2018-12-01 | Outpatient (CLI) | payer MEDICARE, MEDICAID ==
--- NOTE | 2018-12-01 11:54 | RADIOLOGY IMAGING REPORT ---
[place] [facility] [place] Bhavya Dorantes : 1955 MR: [id number] V: [id number] EXAM DATE: ORDERING PHYSICIAN: YOSSI ALCALA TECHNOLOGIST: Location: [facility] [place] Patient: Bhavya Dorantes : 1955 Visit/Account:[id number] Date of Sevice: 12/01/2018 Exam type: CHEST PA LAT History: COPD, asthma, pneumonia, shortness of breath Comparison: January 10, 2018. Findings: There is been a slight increase in the peribronchial thickening superimposed on previous background o f chronic peribronchial thickening concerning for an acute peribronchial inflammatory process. There is a small amount of discoid atelectasis in the left lower lobe as well. The cardiac silhouette lanie ears normal. There are postsurgical changes from anterior fusion of the lower cervical spine.. Ther e are moderate spondylotic changes of the thoracic spine IMPRESSION: 1. Slight increase in the peribronchial markings superimposed on the previous background of chronic peribronchial thickening concerning for a superimposed acute peribronchial inflammatory process. Small amount of discoid atelectasis left lower lobe Report Dictated By: Edna Espinoza MD at 12/01/2018 11:46 AM Report E-Signed By: Edna Espinoza MD at 12/01/2018 11:48 AM WSN:[email or web address]
== END ==
LOC: RAD 10:18
PROVIDERS: ATTEND Family Medicine
DX: R91.8 Other nonspecific abnormal finding of lung field (principal)
CPT/HCPCS: 71046

== ENCOUNTER → 2018-12-19 | Outpatient (CLI) | payer MEDICARE, MEDICAID ==
--- NOTE | 2018-12-19 14:17 | RADIOLOGY IMAGING REPORT ---
FACILITY: [facility] - [place] PATIENT NAME: Bhavya Dorantes : 1955 MR: [id number] V: [id number] EXAM DATE: ORDERING PHYSICIAN: YOSSI ALCALA TECHNOLOGIST: Location: [facility] Patient: Bhavya Dorantes : 1955 Visit/Account:[id number] Date of Sevice: 12/19/2018 CT CHEST W/O CONTRAST History: Follow-up pneumonia TECHNIQUE: Contiguous axial images were performed through the chest to the level of the adrenal gla nds. No IV contrast was administered. Coronal and sagittal reformatting was also performed.Dose Lower ing Technique One of the following dose optimization techniques was utilized in the performance of this exam: Autom ated exposure control; adjustment of the mA and/or kV according to the patient's size; or use of an i terative reconstruction technique. Specific details can be referenced in the facility's radiology C T exam operational policy. COMPARISON STUDIES: Two-view chest December 01, 2018. Lungs / Pleura: There is septal thickening and interstitial prominence in the periphery of the post erior segment of the right upper lobe. This septal thickening and mild airspace consolidation is not ed in the posterior segments of both lower lobes. There is no evidence of pleural effusions. Mediastinum/nodes: There several pretracheal lymph nodes largest measuring 1.3 x 0.8 cm there are sm all precarinal and AP window lymph nodes Heart and vessels: Pulmonary arteries are mildly prominent Musculoskeletal / Body wall: There moderate spondylotic changes of the thoracic spine. Incompletel y imaged are postsurgical changes from anterior fusion of the cervical spine. Upper abdomen: . There are postsurgical changes from a cholecystectomy IMPRESSION: There is septal thickening and interstitial prominence of the periphery of the posterior segment of t he right upper lobe. This could be chronic although acute infiltrate is included in the differential diagnosis There is septal thickening and mild airspace consolidation the posterior segments of both lower lobes also consistent with chronic changes versus developing infiltrate and/or atelectasis. Pulmonary arteries are mildly prominent which can be seen with pulmonary arterial hypertension Additional chronic findings as described Report Dictated By: Edna Espinoza MD at 12/19/2018 1:43 PM Report E-Signed By: Edna Espinoza MD at 12/19/2018 2:13 PM WSN:[email or web address]
--- NOTE | 2018-12-19 15:28 | RADIOLOGY IMAGING REPORT ---
FACILITY: [facility] [place] PATIENT NAME: Bhavya Dorantes : 1955 MR: [id number] V: [id number] EXAM DATE: ORDERING PHYSICIAN: YOSSI ALCALA TECHNOLOGIST: Location: [facility] Patient: Bhavya Dorantes : 1955 Visit/Account:[id number] Date of Sevice: 12/19/2018 EXAMINATION: CT Temporal Bone without IV contrast HISTORY: Right otalgia. TECHNIQUE: Non-IV enhanced high-resolution sub-millimeter axial scans were obtained through both tem poral bones, reformatted in the coronal and sagittal plane. Exam is optimized for bone detail and is not intended for soft tissue evaluation of the posterior fossa. The rest of the brain was not imaged. One of the following dose optimization techniques was utilized in the performance of this exam: Autom ated exposure control; adjustment of the mA and/or kV according to the patient's size; or use of an i terative reconstruction technique. Specific details can be referenced in the facility's radiology C T exam operational policy. COMPARISON: Brain MRI dated 05/27/2010. FINDINGS: RIGHT TEMPORAL BONE: Mastoid segment / EAC: Negative. Tympanic Membrane / Middle ear: Negative. Inner ear: Cochlea / vestibule / semicircular canals: Negative. IAC: Negative. Vestibular / cochlear aqueducts: Negative. Petrous apex: Negative. ICA / jugular bulb: Negative. Visualized skull base: Negative. LEFT TEMPORAL BONE: Mastoid segment / EAC: Negative. Tympanic Membrane / Middle ear: Negative. Inner ear: Cochlea / vestibule / semicircular canals: Negative. IAC: Negative. Vestibular / cochlear aqueducts: Negative. Petrous apex: Negative. ICA / jugular bulb: Negative. Visualized skull base: Negative. OTHER: Bilateral temporomandibular joint arthritis, left worse than right. Rightward nasal septal dev iation. IMPRESSION: 1. Bilateral temporomandibular joint arthritis, left worse than right. 2. Rightward nasal septal deviation. 3. Otherwise unremarkable bilateral temporal bone CT. Report Dictated By: Kj James MD at 12/19/2018 3:18 PM Report E-Signed By: Kj James MD at 12/19/2018 3:24 PM WSN:[email or web address]
== END ==
LOC: CT 00:40
PROVIDERS: ATTEND Family Medicine
DX: I27.20 Pulmonary hypertension, unspecified (principal)
CPT/HCPCS: 36415; 70480; 71250; 82040; 82247; 82310; 82374; 82435; 82565; 82947; 84075; 84132; 84155; 84295; 84450; 84460; 84520

== ENCOUNTER 2018-12-22 09:13 | Emergency (ER) | payer MEDICARE, MEDICAID ==
--- NOTE | 2018-12-22 09:16 | ER Report ---
History and Physical Time Seen By MD: 09:15 HPI/ROS CHIEF COMPLAINT: Cough, congestion, earache, right lower extremity erythema HISTORY OF PRESENT ILLNESS: Patient is a 63-year-old female here with multiple complaints including the above. Patient also reports having a developing right lower extremity erythema. Denies fevers, chills. She does report having worsening cough which has been persistent. She also complains of increased swelling behind her right ear. Denies focal neurological findings REVIEW OF SYSTEMS: Constitutional: No fever, no chills. Eyes: No discharge. ENT: No sore throat. Swelling behind right ear Cardiovascular: No chest pain, no palpitations. Respiratory: + cough, + shortness of breath. Gastrointestinal: No abdominal pain, no vomiting. Genitourinary: No hematuria. Musculoskeletal: No back pain. Skin: + Erythematous rash on right distal lower extremity Neurological: Pain behind right ear Allergies: Coded Allergies: oxycodone (Verified Allergy, Severe, RASH, 12/22/18) Sulfa (Sulfonamide Antibiotics) (Verified Allergy, Intermediate, ITCH, 12/22/18) ciprofloxacin (Verified Allergy, Mild, HIVES, 12/22/18) Uncoded Allergies: SOME TAPES (Allergy, Mild, 07/21/11) PLASTIC ON HOSPITAL BEDS (Allergy, Unknown, 07/21/11) Home Meds Active Scripts Prednisone (PREDNISONE) 50 Mg Tablet, 50 MG PO QDAY for 5 Days, #5 TAB Prov:CHUN FIGUEROA DO 12/22/18 Cephalexin Monohydrate (CEPHALEXIN) 500 Mg Cap, 500 MG PO Q6H for 7 Days, #28 CAP 0 Refills Prov:CHUN FIGUEROA DO 12/22/18 Mupirocin Alexander 2% Cream (MUPIROCIN 2% CREAM) 15 Gm Cream..g., 0 TP TID for 10 Days, #1 TUBE Prov:TIMBO THOMPSON MD 08/19/18 Bacitracin (BACITRACIN) 30 Gm Oint...g., 1 HIMA TP QDAY PRN for Dressing Changes, #1 TUBE 0 Refills Prov:JALEN LIZARRAGA MD 07/28/15 Aripiprazole (ABILIFY) 5 Mg Tablet, 0.5 TAB PO QDAY, #15 TAB TAKE 1 TABLET BY MOUTH EVERY DAY Prov:PAULO DURANT APRN SKIN CARE CONSULTANT-C 06/27/15 Atorvastatin Calcium (ATORVASTATIN CALCIUM) 20 Mg Tablet, 1 TAB PO QDAY, #90 TAB 1 Refill Prov:MAHSA MCCARTNEY MD 05/06/15 Morphine Sulfate (MS CONTIN) 30 Mg Tablet.er, 1 TAB PO BID, #60 TAB 0 Refills Prov:MAHSA MCCARTNEY MD 05/02/15 Paroxetine Hcl (PAROXETINE HCL) 30 Mg Tablet, 1 TAB PO QDAY for for depression, #90 TAB 3 Refills Prov:MAHSA MCCARTNEY MD 05/02/15 Meloxicam (MELOXICAM) 15 Mg Tablet, 1 TAB PO QDAY, #90 TAB 3 Refills Prov:MAHSA MCCARTNEY MD 05/02/15 Trazodone Hcl (TRAZODONE HCL) 50 Mg Tablet, 1 TAB PO QHS, #90 TAB 3 Refills Prov:MAHSA MCCARTNEY MD 05/02/15 Topiramate (TOPIRAMATE) 200 Mg Tablet, 1 TAB PO QDAY, #30 TAB 5 Refills Prov:PAULO DURANT APRN SKIN CARE CONSULTANT-C 03/13/15 Modafinil (PROVIGIL) 200 Mg Tablet, 1 TAB PO QAM, #30 TAB 5 Refills Prov:MAHSA MCCARTNEY MD 01/30/15 Reported Medications Baclofen (BACLOFEN) 20 Mg Tablet, 10 MG PO QDAY 12/22/18 Levothyroxine Sodium (LEVOTHYROXINE SODIUM) 0.125 Mg Tab, 125 MCG PO QDAY 12/22/18 Fluticasone/Umeclidin/Vilanter (Trelegy Ellipta 100-62.5-25) 100-62.5 Blst.w.dev, INH DAILY 12/22/18 Ipratropium/Albuterol Sulfate (IPRAT-ALBUT 0.5-3(2.5) MG/3 ML) 3 Ml Ampul.neb, 3 ML IH 09/22/18 Mirabegron (MYRBETRIQ) 50 Mg Tab.er.24h, 50 MG PO QDAY 08/25/15 Levothyroxine Sodium (LEVOTHYROXINE SODIUM) 100 Mcg Tablet, 100 MCG PO QDAY 07/28/15 Ropinirole Hcl (ROPINIROLE HCL) 2 Mg Tablet, 1-2 TAB PO QDAY, #90 TAB 3 Refills 7/28/15 Cholecalciferol (Vitamin D3) (VITAMIN D) 2,000 Unit Tablet, 1 TAB PO QDAY, CAPSULE 06/10/15 Calcium Carbonate/Vitamin D3 (Calcium 600 + D Tablet) 1 Each Tablet, 2 TAB PO QDAY 06/10/15 Discontinued Reported Medications Collagenase Clostridium Hist. (SANTYL) Unknown Strength Oint...g., TP 11/25/14 Triamcinolone Acet 0.5% (TRIAMCINOLONE ACETONIDE 0.5%) 15 Gm Cr, 15 GM TP BID 08/02/14 Discontinued Scripts Cephalexin (KEFLEX) 500 Mg Capsule, 2 CAP PO Q12H for 10 Days, #30 TAB 0 Refills Prov:JALEN LIZARRAGA MD 09/29/18 Hx Smoking: No (JANUARY 26, 2005 SHE QUIT (SMOKED 2 PPD X 30 + YRS)) Smoking Status: Former Smoker Hx Substance Use Disorder: No Hx Alcohol Use: No Constitutional Vital Sign - Last 24 Hours 12/22/18 12/22/18 12/22/18 12/22/18 09:18 09:19 09:27 09:43 Temp 97.9 Pulse 68 62 Resp 18 B/P (MAP) 122/77 (92) 122/77 Pulse Ox 92 93 O2 Delivery Nasal Cannula Nasal Cannula O2 Flow Rate 4.0 4 12/22/18 12/22/18 12/22/18 12/22/18 10:13 10:43 10:48 11:00 Pulse 62 64 69 B/P (MAP) 99/54 (69) Pulse Ox 92 91 92 O2 Delivery Nasal Cannula Nasal Cannula Nasal Cannula O2 Flow Rate 4 4 4 12/22/18 11:18 Pulse 58 Pulse Ox 91 O2 Delivery Nasal Cannula O2 Flow Rate 4 Physical Exam General Appearance: [The patient is alert, has no immediate need for airway protection and no signs of toxicity.] [ ] [Eyes:] [Pupils equal and round no pallor or injection.] [ENT, Mouth:] [Mucous membranes are moist.] Respiratory: [There are no retractions, lungs are clear to auscultation.] Cardiovascular: [Regular rate and rhythm.] [ ] Gastrointestinal: [Abdomen is soft and non tender, no masses, bowel sounds normal.] [Neurological:] [ ] [Skin:] [Warm and dry, no rashes.] [Musculoskeletal:] [Neck is supple non tender.] [Extremities are nontender, nonswollen and have full range of motion.] [ ] [DIFFERENTIAL DIAGNOSIS: After history and physical exam differential diagnosis was considered for] [ ] Medical Decision Making Data Points Result Diagram: 12/22/18 0953 12/22/18 0953 Laboratory Hematology Test 12/22/18 09:53 Red Blood Count 4.01 M/uL (4.17-5.56) Mean Corpuscular Volume 103.8 fL (80.0-96.0) Mean Corpuscular Hemoglobin 34.5 pg (26.0-33.0) Mean Corpuscular Hemoglobin Concent 33.2 g/dL (32.0-36.0) Red Cell Distribution Width 15.4 % (11.5-14.5) Mean Platelet Volume 8.3 fL (7.2-11.1) Neutrophils (%) (Auto) 61.3 % (39.4-72.5) Lymphocytes (%) (Auto) 26.9 % (17.6-49.6) Monocytes (%) (Auto) 8.4 % (4.1-12.4) Eosinophils (%) (Auto) 2.5 % (0.4-6.7) Basophils (%) (Auto) 0.9 % (0.3-1.4) Nucleated RBC Relative Count (auto) 0.0 /100WBC Neutrophils # (Auto) 3.1 K/uL (2.0-7.4) Lymphocytes # (Auto) 1.3 K/uL (1.3-3.6) Monocytes # (Auto) 0.4 K/uL (0.3-1.0) Eosinophils # (Auto) 0.1 K/uL (0.0-0.5) Basophils # (Auto) 0.0 K/uL (0.0-0.1) Nucleated RBC Absolute Count (auto) 0.00 K/uL Sodium Level 137 mmol/L (137-145) Potassium Level 4.6 mmol/L (3.5-5.0) Chloride Level 111 mmol/L (98-107) Carbon Dioxide Level 25 mmol/L (22-31) Blood Urea Nitrogen 17 mg/dl (7-18) Creatinine 0.80 mg/dl (0.52-1.04) Glomerular Filtration Rate Calc > 60.0 Random Glucose 111 mg/dl (75-110) Calcium Level 9.8 mg/dl (8.4-10.2) Total Bilirubin 0.6 mg/dl (0.2-1.3) Aspartate Amino Transf (AST/SGOT) 21 U/L (0-35) Alanine Aminotransferase (ALT/SGPT) 32 U/L (0-56) Alkaline Phosphatase 76 U/L (0-126) Total Protein 6.9 g/dl (6.3-8.2) Albumin 3.7 g/dl (3.5-5.0) Influenza Virus Type A (PCR) Negative (NEGATIVE) Influenza Virus Type B (PCR) Negative (NEGATIVE) Chemistry Test 12/22/18 09:53 White Blood Count 5.0 k/uL (4.5-11.0) Red Blood Count 4.01 M/uL (4.17-5.56) Hemoglobin 13.8 g/dL (12.0-16.0) Hematocrit 41.6 % (34.0-47.0) Mean Corpuscular Volume 103.8 fL (80.0-96.0) Mean Corpuscular Hemoglobin 34.5 pg (26.0-33.0) Mean Corpuscular Hemoglobin Concent 33.2 g/dL (32.0-36.0) Red Cell Distribution Width 15.4 % (11.5-14.5) Platelet Count 191 K/uL (150-450) Mean Platelet Volume 8.3 fL (7.2-11.1) Neutrophils (%) (Auto) 61.3 % (39.4-72.5) Lymphocytes (%) (Auto) 26.9 % (17.6-49.6) Monocytes (%) (Auto) 8.4 % (4.1-12.4) Eosinophils (%) (Auto) 2.5 % (0.4-6.7) Basophils (%) (Auto) 0.9 % (0.3-1.4) Nucleated RBC Relative Count (auto) 0.0 /100WBC Neutrophils # (Auto) 3.1 K/uL (2.0-7.4) Lymphocytes # (Auto) 1.3 K/uL (1.3-3.6) Monocytes # (Auto) 0.4 K/uL (0.3-1.0) Eosinophils # (Auto) 0.1 K/uL (0.0-0.5) Basophils # (Auto) 0.0 K/uL (0.0-0.1) Nucleated RBC Absolute Count (auto) 0.00 K/uL Glomerular Filtration Rate Calc > 60.0 Calcium Level 9.8 mg/dl (8.4-10.2) Total Bilirubin 0.6 mg/dl (0.2-1.3) Aspartate Amino Transf (AST/SGOT) 21 U/L (0-35) Alanine Aminotransferase (ALT/SGPT) 32 U/L (0-56) Alkaline Phosphatase 76 U/L (0-126) Total Protein 6.9 g/dl (6.3-8.2) Albumin 3.7 g/dl (3.5-5.0) Influenza Virus Type A (PCR) Negative (NEGATIVE) Influenza Virus Type B (PCR) Negative (NEGATIVE) EKG/Imaging Imaging Exam type: CHEST PA LAT History: History of pneumonia last week, persistent cough Comparison: December 01, 2018. Findings: Has been further increase in the peribronchial thickening bilaterally. No evidence of pleural effusions or overt pulmonary edema. The cardiac silhouette remains stable. There are postsurgical changes of the cervical spine IMPRESSION: 1. Further increase in the bilateral peribronchial thickening worrisome for an acute peribronchial inflammatory process Location: [facility] [place] Patient: Bhavya Dorantes : 1955 Visit/Account:[id number] Date of Sevice: 12/22/2018 CT BRAIN WITH Indication: right sided head swelling Comparison: None. Technique: Head CT vertex to the skull base obtained. One of the following dose optimization techniques was utilized in the performance of this exam: automated exposure control; adjustment of the mA and/or kV according to the patient's size; or use of an iterative reconstruction technique. Specific details can be referenced in the facility's radiology CT exam operational policy. Contrast: 100 mL Isovue-370 IV. Findings: Brain: The edge and white matter differentiation and cortex are maintained. The bilateral caudate nuclei, lentiform nuclei, thalami mid brain doug and the cerebellum demonstrate normal enhancement. The [place] is normal. Major draining veins of the brain are patent. Ventricles and sulci:Ventricles and sulci are symmetric in size. There is no abnormal extra-axial fluid collection or mass. Paranasal sinuses:Visualized paranasal sinuses and mastoid air cells are clear. Calvarium:Bones of the skull and skull base are intact. Orbits and soft tissues: Right and left globes and soft tissues of the head are normal. Impression: Negative CT head. No evidence of infarct hemorrhage or mass. This was called by Dr. Cadena to CHUN FIGUEROA on 12/22/2018 10:51 AM ED Course/Re-evaluation ED Course Patient is a 63-year-old female here with complaints of pain behind the right ear with subjective swelling which was not appreciated on physical exam, cough, congestion which has been persistent, right lower extremity erythema. Chest x- ray showed no acute consolidations. Head CT did not appreciated swelling behind the right ear. Ear exam was unremarkable. Patient was given scripts for Keflex for treatment of superficial skin infection of the right lower extremity, prednisone for suspected COPD exacerbation. She was stable throughout course and at time of discharge. Close PCP follow-up recommended. Return precautions provided Decision to Disposition Date: Dec 22, 2018 Decision to Disposition Time: 11:19 Depart Departure Latest Vital Signs Vital Signs Date Time Temp Pulse Resp B/P (MAP) Pulse Ox O2 Delivery O2 Flow Rate FiO2 12/22/18 11:18 58 91 Nasal Cannula 4 12/22/18 11:00 99/54 (69) 12/22/18 09:27 97.9 18 Core Temperature (Celsius): 36.45 Impression: Primary Impression: Cellulitis Additional Impression: Upper respiratory infection Condition: Improved Disposition: HOME OR SELF-CARE Referrals: SHIMA VILLARREAL DO (PCP) New Scripts Prednisone (PREDNISONE) 50 Mg Tablet 50 MG PO QDAY for 5 Days, #5 TAB Prov: CHUN FIGUEROA DO 12/22/18 Cephalexin Monohydrate (CEPHALEXIN) 500 Mg Cap 500 MG PO Q6H for 7 Days, #28 CAP 0 Refills Prov: CHUN FIGUEROA DO 12/22/18 Patient Instructions: Cellulitis (ED), Upper Respiratory Infection (ED) Additional Instructions: Please drink plenty of water. Please take 1 tablet of Keflex 4 times daily for the next 7 days for treatment of superficial skin infection of the right lower extremity. Please take one tablet or 50 mg of prednisone daily for treatment of upper respiratory infection and inflammation of the lungs. Please follow-up with your primary care provider in the next 48 hours for outpatient reevaluation and care. Please return immediately if you develop increased shortness of breath, fevers, chest pains, nausea, vomiting, worsening rash, increased swelling. Problem Qualifiers CHUN FIGUEROA DO Dec 22, 2018 09:15
[2018-12-22] MEDS ORDERED: LEV125 PO (09:37)
[2018-12-22] MEDS ORDERED: FLUT1BLS5 INH (09:37)
[2018-12-22] MEDS ORDERED: BACL-51 PO (09:37)
[2018-12-22 10:05] LABS: PLATELET COUNT, AUTOMATED 191 K/uL (150-450)
[2018-12-22 11:00] VITALS: BP 99/54
--- NOTE | 2018-12-22 11:04 | RADIOLOGY IMAGING REPORT ---
FACILITY: [facility] - [place] PATIENT NAME: Bhavya Dorantes : 1955 MR: [id number] V: [id number] EXAM DATE: ORDERING PHYSICIAN: CHUN FIGUEROA TECHNOLOGIST: [place] [facility] [place]: Bhavya Dorantes : 1955 Visit/Account:[id number] Date of Sevice: 12/22/2018 CT BRAIN WITH Indication: right sided head swelling Comparison: None. Technique: Head CT vertex to the skull base obtained. One of the following dose optimization techniqu es was utilized in the performance of this exam: automated exposure control; adjustment of the mA and /or kV according to the patient's size; or use of an iterative reconstruction technique. Specific de tails can be referenced in the facility's radiology CT exam operational policy. Contrast: 100 mL Isovue-370 IV. Findings: Brain: The edge and white matter differentiation and cortex are maintained. The bilateral caudate nu clei, lentiform nuclei, thalami mid brain doug and the cerebellum demonstrate normal enhancement. Th e [place] is normal. Major draining veins of the brain are patent. Ventricles and sulci:Ventricles and sulci are symmetric in size. There is no abnormal extra-axial flu id collection or mass. Paranasal sinuses:Visualized paranasal sinuses and mastoid air cells are clear. Calvarium:Bones of the skull and skull base are intact. Orbits and soft tissues: Right and left globes and soft tissues of the head are normal. Impression: Negative CT head. No evidence of infarct hemorrhage or mass. This was called by Dr. Cadena to CHUN FIGUEROA on 12/22/2018 10:51 AM Report Dictated By: Nawaf Cadena at 12/22/2018 10:51 AM Report E-Signed By: Nawaf Cadena at 12/22/2018 11:00 AM WSN:[id number]
--- NOTE | 2018-12-22 11:04 | RADIOLOGY IMAGING REPORT ---
FACILITY: [facility] PATIENT NAME: Bhavya Dorantes : 1955 MR: [id number] V: [id number] EXAM DATE: ORDERING PHYSICIAN: CHUN FIGUEROA TECHNOLOGIST: Location: [facility] Patient: Bhavya Dorantes : 1955 Visit/Account:[id number] Date of Sevice: 12/22/2018 Exam type: CHEST PA LAT History: History of pneumonia last week, persistent cough Comparison: December 01, 2018. Findings: Has been further increase in the peribronchial thickening bilaterally. No evidence of pleural effusi ons or overt pulmonary edema. The cardiac silhouette remains stable. There are postsurgical changes of the cervical spine IMPRESSION: 1. Further increase in the bilateral peribronchial thickening worrisome for an acute peribronchial i nflammatory process Report Dictated By: Edna Espinoza MD at 12/22/2018 10:58 AM Report E-Signed By: Edna Espinoza MD at 12/22/2018 10:59 AM WSN:[email or web address]
[2018-12-22] MEDS ORDERED: CEPH500C24 PO (11:22)
[2018-12-22] MEDS ORDERED: PRED50TA22 PO (11:22)
== END 2018-12-22 11:41 | disposition home or self-care (01) ==
LOC: ER 09:18
DX: L03.115 Cellulitis of right lower limb (principal); J06.9 Acute upper respiratory infection, unspecified
CPT/HCPCS: 70460; 71046; 85025; 87502; 99284; Q9967; 82040; 82247; 82310; 82374; 82435; 82565; 82947; 84075; 84132; 84155; 84295; 84450; 84460; 84520

== ENCOUNTER → 2019-04-03 | Outpatient (REF) | payer MEDICARE, MEDICAID ==
[~2019-04-03] MED LIST changes: +AMOX1TAB9 PO; +FLUT1BLS5 INH; +LEV125 PO; +PRED50TA22 PO
== END ==
LOC: ZZSENDIN 12:08
PROVIDERS: ATTEND Family Medicine
DX: Z51.89 Encounter for other specified aftercare (principal); E03.4 Atrophy of thyroid (acquired)
CPT/HCPCS: 82310; 82374; 82435; 82565; 82947; 84132; 84295; 84443; 84520

== ENCOUNTER → 2019-04-12 | Outpatient (CLI) | payer MEDICARE, MEDICAID ==
--- NOTE | 2019-04-12 15:13 | RADIOLOGY IMAGING REPORT ---
FACILITY: [facility] [place] PATIENT NAME: Bhavya Dorantes : 1955 MR: [id number] V: [id number] EXAM DATE: ORDERING PHYSICIAN: SHIMA VILLARREAL TECHNOLOGIST: Location: [facility] - [place] Patient: Bhavya Dorantes : 1955 Visit/Account:[id number] Date of Sevice: 04/12/2019 Exam type: HIP LEFT History: Left hip pain Comparison: None. Findings: Two views of the left hip demonstrates no evidence of acute fracture or dislocation. There is very m ild joint space narrowing. Incompletely imaged are postsurgical changes lower lumbar spine IMPRESSION: 1. Very mild narrowing of the left hip joint space Report Dictated By: Edna Espinoza MD at 04/12/2019 3:07 PM Report E-Signed By: Edna Espinoza MD at 04/12/2019 3:08 PM WSN:[id number]
== END ==
LOC: RAD 14:25
PROVIDERS: ATTEND Family Medicine
DX: M25.552 Pain in left hip (principal)

== ENCOUNTER → 2019-05-04 | Outpatient (CLI) | payer MEDICARE, MEDICAID ==
[~2019-05-04] MED LIST changes: +IOPAMIDOL 76% 150 ML INFUS BTL 150 ML ONE; +NS(*) 0.9% 50 ML BAG 50 ML ONE; -TRAZ50TA34 PO; +TRAZ50TA52 PO
--- NOTE | 2019-05-04 12:13 | RADIOLOGY IMAGING REPORT ---
[place] [facility] [place]: Bhavya Dorantes : 1955 MR: [id number] V: [id number] EXAM DATE: ORDERING PHYSICIAN: JALEN LIZARRAGA TECHNOLOGIST: Location: [facility] [place] Patient: Bhavya Dorantes : 1955 Visit/Account:[id number] Date of Sevice: 05/04/2019 CT CTA AORTA W/RUNOFF HISTORY: Chronic wound on the right foot ADDITIONAL HISTORY: None. TECHNIQUE: CTA abdominal aorta and bilateral lower extremities with intravenous contrast. 3D regalado l slab MIPs and 2D reconstructions in the coronal and sagittal planes were also created. One of the f [facility] dose optimization techniques was utilized in the performance of this exam: automated exposur e control; adjustment of the mA and/or kv according to patient size; or use of iterative reconstructi on technique. Specific details can be referenced in the facility's radiology CT exam operational liz cy. CONTRAST: 125 mL of Isovue-370 COMPARISON: None. FINDINGS: Abdominal aorta: Mild infrarenal calcification without aneurysm or dissection. Mesenteric arteries: Normal Renal arteries: Normal Right lower extremity arterial system Common iliac: Mild calcification without stenosis External iliac: Normal Internal iliac: Mild calcification without stenosis Common femoral: Normal SFA: Normal Profunda: Normal Popliteal: Normal PT/Peroneal trunk: Normal AT: Patent to the ankle. At the ankle there is a dominant collateral extending into the lateral aspe ct of the foot with no contrast seen within the dorsalis pedis arch. The deep plantar artery is cammy nstituted via the plantar arch. PT: Patent across the ankle into the foot forming the plantar arch Peroneal: Patent to the distal leg Left lower extremity arterial system Common iliac: Mild calcification without stenosis External iliac: Normal Internal iliac: Mild calcification without stenosis Common femoral: Normal SFA: Normal Profunda: Normal Popliteal: Normal PT/Peroneal trunk: Normal AT: Patent across the ankle into the foot forming the dorsalis pedis PT: Patent across the ankle into the foot forming the plantar arch Peroneal: Patent to the distal leg Visualized lung bases: Mild basilar reticular opacities. Hepatobiliary: Cholecystectomy. Diffuse hepatic steatosis. Spleen: Negative. Adrenals: Negative. Pancreas: Negative. Kidneys/ureters/bladder: Negative. Bowel/peritoneum/mesentery: Negative. Vessels: Negative. Lymph nodes: Negative. Pelvic genitourinary: Negative. Bones/body wall: L3-S1 fusion hardware. Left tibial intramedullary niesha. Severe arthrosis at the ri ght tibial talar joint. Prior amputation of the great toe. Other findings: None significant IMPRESSION: 1. Abdominal aorta, mesenteric arteries and renal arteries are normal. 2. Right lower extremity runoff shows no proximal stenoses. There is three-vessel runoff. The ante rior tibial artery is patent to the ankle with a dominant collateral extending along the lateral foot without contrast within the dorsalis pedis arch. The deep plantar artery is reconstituted via the p lantar arch. 3. Left lower extremity runoff reveals no significant proximal stenoses. There is three-vessel runo ff. Report Dictated By: Avni Brewer MD at 05/04/2019 11:44 AM Report E-Signed By: Avni Brewer MD at 05/04/2019 12:07 PM WSN:[email or web address]
== END ==
LOC: CT 01:45
PROVIDERS: ATTEND Surgery
DX: L97.509 Non-pressure chronic ulcer of other part of unspecified foot with unspecified severity (principal); R20.9 Unspecified disturbances of skin sensation
CPT/HCPCS: 36415; 75635; 82565; J7050; Q9967

== ENCOUNTER → 2019-05-31 | Outpatient (CLI) | payer MEDICARE, MEDICAID ==
[~2019-05-31] MED LIST changes: -IOPAMIDOL 76% 150 ML INFUS BTL 150 ML ONE; -NS(*) 0.9% 50 ML BAG 50 ML ONE
--- NOTE | 2019-05-31 11:19 | RADIOLOGY IMAGING REPORT ---
FACILITY: [facility] PATIENT NAME: Bhavya Dorantes : 1955 MR: [id number] V: [id number] EXAM DATE: ORDERING PHYSICIAN: SHIMA VILLARREAL TECHNOLOGIST: Location: [facility] [place] Patient: Bhavya Dorantes : 1955 Visit/Account:[id number] Date of Sevice: 05/31/2019 CHEST PA LAT HISTORY: Shortness of breath. COMPARISON: Chest x-ray December 22, 2018. FINDINGS: Cardiomediastinal contours: The heart is enlarged. Lungs and pleura: There is diffuse engorgement of the pulmonary vasculature. The central pulmonary v essels are enlarged. There is no pleural effusion or infiltrate. Bones/soft tissues: There has been anterior cervical fusion. IMPRESSION: The heart is enlarged and there is engorgement of the pulmonary vasculature. This appears to represe nt a chronic finding however There is no pleural effusion. There is no infiltrate. Report Dictated By: Jhon Camilo MD at 05/31/2019 11:07 AM Report E-Signed By: Jhon Camilo MD at 05/31/2019 11:10 AM WSN:[email or web address]
--- NOTE | 2019-05-31 11:39 | RADIOLOGY IMAGING REPORT ---
FACILITY: [facility] PATIENT NAME: Bhavya Dorantes : 1955 MR: [id number] V: [id number] EXAM DATE: ORDERING PHYSICIAN: SHIMA VILLARREAL TECHNOLOGIST: [place] [facility] [place] Bhavya Dor[place] : 1955 Visit/Account:[id number] Date of Sevice: 05/31/2019 Study: HIP RIGHT Indication: Pain Comparison study: April 12, 2019 Findings: AP supine view the pelvis and a frog-leg view of the right hip demonstrates no evidence of acute bony abnormality. The femoral heads and necks are unremarkable bilaterally. There is no evide nce of abnormality of the pubic rami. The visualized soft tissues are unremarkable. The patient is status post extensive lower lumbar spine surgery. IMPRESSION: No acute bony abnormality identified. Report Dictated By: Rito Joseph at 05/31/2019 11:19 AM Report E-Signed By: Rito Joseph at 05/31/2019 11:32 AM WSN:[email or web address]
== END ==
LOC: RAD 09:55
PROVIDERS: ATTEND Family Medicine
DX: I51.7 Cardiomegaly (principal); R05 Cough
CPT/HCPCS: 71046

== ENCOUNTER → 2019-06-06 | Outpatient (CLI) | payer MEDICARE, MEDICAID ==
--- NOTE | 2019-06-06 14:42 | RADIOLOGY IMAGING REPORT ---
FACILITY: [facility] [place] PATIENT NAME: Bhavya Dorantes : 1955 MR: [id number] V: [id number] EXAM DATE: ORDERING PHYSICIAN: SHIMA VILLARREAL TECHNOLOGIST: Location: [facility] Patient: Bhavya Dorantes : 1955 Visit/Account:[id number] Date of Sevice: 06/06/2019 L-SPINE 2 OR 3 VIEW HISTORY: Low back pain radiating to the right groin fusion 15 years ago Additional history: None COMPARISON: CT lumbar spine dated 09/04/2009 FINDINGS: Patient status post remote posterior lumbar MRI fusion L3-4 through L5-S1 with disc prosthesis in the L3-4 and L4-5 and L5-S1 disc spaces. An L3 pedicle screw is suboptimally positioned with the tip br eaching the L2-3 disc space. This can also be seen on the prior CT. There is loss of height at L2-3 and air within the disc. This is unchanged from the previous exam. T12-L1 L4 1-L2 discs are normal . Lumbar spine is aligned. IMPRESSION: Remote posterior lumbar interbody fusion L3-4 through L5-S1. The tip of an L3 pedicle screw breaches the L2-3 disc unchanged. L2-3 degenerative disc disease. Report Dictated By: Binh Cintron MD at 06/06/2019 2:25 PM Report E-Signed By: Binh Cintron MD at 06/06/2019 2:34 PM WSN:[email or web address]
== END ==
LOC: RAD 11:30
PROVIDERS: ATTEND Family Medicine
DX: M51.36 Other intervertebral disc degeneration, lumbar region (principal); Z98.890 Other specified postprocedural states
CPT/HCPCS: 72100